=== PATIENT | male | born 1960 | race Caucasian/White ===

== ENCOUNTER 2022-11-24 15:36 | Emergency (ER) | payer MEDICARE, SELFPAY ==
--- NOTE | 2022-11-24 15:48 | ED_ITS ---
HPI - Recheck/Abnormal Lab/Rx General Chief Complaint: Upper Respiratory Symptoms Stated Complaint: Abnormal labs Time Seen by Provider: 11/24/22 16:01 Source: patient Mode of arrival: ambulatory Limitations: no limitations History of Present Illness HPI narrative: Patient is a 62-year-old male presents emergency department being sent in by his primary care provider. States he has been ill for 6 weeks for left sinus tenderness, nasal congestion, completed a course of doxycycline 1 week ago. Reports many years ago he had red spots to his hands and mouth 6 years ago, which has now been documented as an allergy to Augmentin, and his doctor would not prescribe it. Symptoms had worsened yesterday, PCP ordered a sinus XR he states that the report indicated left sinusitis. He contacted the primary care office today to discuss this, and he was advised that he needed to come to the emergency department to receive IV antibiotics. He reports a history of liver transplant 2008, due to Hepatitis C, on tacrolimus and cellcept. Has trialed Flonase, Mucinex, without any significant improvement. Denies fevers, chills, sore throat, chest pain, shortness of breath, difficulty breathing, nausea, vomiting, abdominal pain. Related Data Previous Rx's Medication Instructions Recorded amoxicillin 875 mg-potassium 1 tab PO Q12H #13 tabs 11/24/22 clavulanate 125 mg tablet Allergies Allergy/AdvReac Type Severity Reaction Status Date / Time No Known Allergies Allergy Verified 11/24/22 16:00 Review of Systems Review of Systems: Constitutional: no fever. no chills. No weakness. no fatigue. ENT/ Mouth: No Ear Pain, positive Nasal Congestion, no sore throat, No Rhinorrhea, No Swallowing Difficulty Skin: No rash or itching. Cardiovascular: No chest pain. No palpitations. Respiratory: No shortness of breath. no cough. No sputum production. Gastrointestinal: No nausea. No vomiting. No diarrhea. No abdominal pain. Genitourinary: No burning micturition. No urinary frequency. Neurologic: No headache. No dizziness. No syncope. No numbness or tingling in the extremities. Musculoskeletal: No muscle pain. No back pain. No joint pain or stiffness. Yes all other systems are reviewed and are negative PMFSH Past Medical History Attestation statement: The following information was validated with the patient. Source: old records reviewed Social History Social History Advance Directives: No Advance Directives Information Provided: Yes Physical Exam Vital Signs: Vital Signs: Last Vital Signs Temp 97.6 F 11/24/22 15:49 Pulse 75 11/24/22 15:49 Resp 20 11/24/22 15:49 BP 141/88 H 11/24/22 15:49 Pulse Ox 97 11/24/22 15:49 O2 Del Method 11/24/22 15:49 BMI result Body Mass Index 25.0 Appearance: Alert.?Oriented to person, place and time. No acute distress.?Normal affect. Eyes: Pupils equal, round and reactive to light.? ENT: TM normal bilaterally. Pharynx normal. Left maxillary sinus tenderness upon palpation?? Neck: Normal inspection.? Neck supple.??No cervical adenopathy CVS: Heart sounds normal. Normal heart rate and rhythm.? Pulses normal.?? Respiratory: No respiratory distress.? Lung sounds clear to auscultation bilaterally?? Abdomen: Soft and non-tender. Normoactive bowel sounds. Skin: Skin warm and dry.? Normal skin color.? ? Extremities: No lower extremity edema.? Neuro: Moves all extremities spontaneously. Sensation intact bilaterally. No motor deficits. Ambulates with normal steady gait. Medications Administered Discontinued Medications Generic Name Dose Route Start Last Admin Trade Name Freq PRN Reason Stop Dose Admin Amoxicillin/Clavulanate Potassium 875 mg 11/24/22 16:00 11/24/22 16:03 Amoxicillin/Potassium Clav 875 Mg Tablet PO 11/24/22 16:01 875 mg ONCE ONE Administration Medical Decision Making Medical Decision Making MDM Narrative: Patient is a 62-year-old with history of liver transplant 2008, due to Hepatitis C, on tacrolimus and cellcept sent to emergency department 5 primary care provider. Has had ongoing sinusitis symptoms for 6 weeks, despite the use of OTC medications and sinus lavage is, nasal spray, sinus XR yesterday revealing left sinusitis, was advised by PCP that he would require IV antibiotics, given history of liver transplant. Overall he is well-appearing, has had prior outpatient testing for viral studies which have been negative. History and physical examination not consistent with pneumonia. He is nontoxic, afebrile, no tachycardia, no tachypnea or hypoxia. Nares are patent bilaterally. He sp eaking clear full sentences. Discussed with patient at this time no indication for IV antibiotics. Given recent completion of doxycycline without significant improvement, recommend treatment with Augmentin given his immunocompromised status. He reports that his PCP was concerned for a possible allergic reaction to Augmentin in the past, which patient does not agree with. Patient received 1st dose of Augmentin while in the emergency department today, tolerated this well, no signs of anaphylaxis, angioedema, urticaria, or allergic reaction. We discussed that should his symptoms persist after the use of Augmentin he may need to consider discussing referral to ENT specialist for chronic sinusitis with his primary care provider. Patient verbalized understanding of this. We discussed worrisome signs and symptoms that would warrant re-evaluation in the emergency department. All questions answered. He was stable for discharge. Prescription Management I considered prescription management with: Antibiotic Chronic Conditions Patient?s care impacted by: Other (Liver transplant) Discharge Plan Discharge Clinical Impression: Sinusitis Qualifiers: Sinusitis location: maxillary Chronicity: chronic Qualified Code(s): J32.0 - Chronic maxillary sinusitis Patient Disposition: Home, Self-Care Instructions: Sinusitis (ED) Additional Instructions: You were able to tolerate Augmentin while in the emergency department without having any reaction to it. Therefore prescription was sent to your pharmacy. If your symptoms still persist after completion of this antibiotic, you may want to consider speaking with your primary care provider and discussing referral to ENT specialist for chronic sinusitis. Be sure to rest, stay well hydrated drinking plenty of fluids, eat small frequent meals. Tylenol/ibuprofen can be used as needed for fever/pain. Saline nasal spray, humidifier may be helpful for nasal congestion. You may return to the emergency department with any new or worsening symptoms or concerns. Follow-up with your primary care provider as needed. Prescriptions: New amoxicillin-pot clavulanate 875-125 mg tablet 1 tab PO Q12H Qty: 13 0RF Referrals: Physician,Unknown J [Primary Care Provider] -
[2022-11-24 15:49] VITALS: BP 141/88; PULSE 75; RESP 20; TEMP 36.4; O2SAT 97; BMI 25.0
[2022-11-24] MEDS: Amoxicillin/Potassium Clav 875 MG TABLET PO (16:03)
--- OUTSIDE RECORDS SUMMARY | 2022-11-24 16:16 | XMS_ITS | Continuity of Care Document ---
:1960 Author Organization [facility] Address [address] [place] [id number]- Care Team Providers Name Role Phone Robbie Ferguson MD Primary Care Physician Encounter [facility] [place] Date(s): 11/15/22 - 11/15/[address] [address]- Discharge Disposition: A-D/C Walkout Attending Physician: Not on Staff, Attending MD Admitting Physician: Not on Staff, Admitting MD Referring Physician: Not on Staff, Referring MD Allergies, Adverse Reactions, Alerts Substance Reaction Severity Status Augmentin Active Latex rash Active Medications atenolol 25 mg oral tablet 25 mg, 1, tablet, By Mouth, Daily, # 30 tablet, Refills 0, Maintenance, 11/01/17 11:38:12 Start Date: 11/01/17 Status: OrderedBactrim SS Tablet 1, tablet, By Mouth, Daily, 12/01/09 12:55:56 Start Date: 12/01/09 Stop Date: 12/08/09 Status: OrderedCalcium 600 +D See Instructions, 1 tablet By Mouth every day, 0 Refills, Maintenance, 05/13/15 11:53:58 Start Date: 05/13/15 Status: OrderedCellCept 500 mg oral tablet 2 tablet, By Mouth, 2 times a day, 1 hour before or 2 hours after meals, # 120 tablet, 0 Refills, Tablet Start Date: 12/01/09 Stop Date: 12/31/09 Status: OrderedColace Capsule 100 mg, By Mouth, 2 times a day, 12/01/09 12:58:44 Start Date: 12/01/09 Stop Date: 12/31/09 Status: OrderedFlomax 0.4 mg oral capsule 1 capsule = 0.4 mg, By Mouth, Daily, 0 Refills, Maintenance, 10/12/15 12:48:02 Start Date: 10/12/15 Status: OrderedFlomax 0.4 mg oral capsule 1 capsule = 0.4 mg, By Mouth, Daily, # 30 capsule, 0 Refills, Maintenance, 05/13/15 11:49:51, Capsule Start Date: 05/13/15 Status: OrderedFlorinef Tablet = 0.1 mg, By Mouth, Every Sunday, Sunday and Sunday, 0 Refills, Tablet Start Date: 12/01/09 Stop Date: 12/31/09 Status: OrderedFlovent HFA Inhalation, 2 times a day, 0 Refills, Maintenance, 06/15/16 11:49:54 Start Date: 06/15/16 Status: OrderedKayexalate in Sorbitol = 15 Gm, 4 times a day, 0 Refills Start Date: 12/01/09 Stop Date: 12/31/09 Status: OrderedLevaquin 500 mg oral tablet 1 tablet, By Mouth, Every 24 hours, # 6 tablet, 0 Refills Start Date: 05/31/09 Stop Date: 06/06/09 Status: OrderedLoratadine 10 mg, By Mouth, Daily, Maintenance, 05/13/15 12:28:56 Start Date: 05/13/15 Status: OrderedPercocet-5/325 325 mg-5 mg oral tablet 2 tablet, By Mouth, Every 6 hours, PRN Pain, 0 Refills, Tablet Start Date: 12/01/09 Stop Date: 12/08/09 Status: Orderedprednisone 5 mg oral tablet 2.5 tabletts , By Mouth, Daily, # 10 tablet, 0 Refills, Tablet Start Date: 12/01/09 Stop Date: 12/11/09 Status: OrderedPrograf 0.5 mg oral capsule See Instructions, 1 capsule By Mouth Every day, 0 Refills, Maintenance, 05/13/15 11:48:44, Capsule Start Date: 05/13/15 Status: OrderedPrograf 1 mg oral capsule 1 capsule, By Mouth, Every 12 hours, # 180 capsule, 0 Refills, Capsule Start Date: 12/01/09 Stop Date: 12/31/09 Status: OrderedPrograf 1 mg oral capsule See Instructions, 1 capsule By Mouth every day, 0 Refills, Maintenance, 05/13/15 11:46:38, Capsule Start Date: 05/13/15 Status: OrderedProtonix 20 mg oral enteric coated tablet 1 tablet = 20 mg, By Mouth, 2 times a day, # 180 tablet, 0 Refills, EC Tablet Start Date: 12/01/09 Stop Date: 12/31/09 Status: Orderedsertraline 50 mg oral tablet 1 tablet, By Mouth, Daily at bedtime, # 30 tablet, 0 Refills, Tablet Start Date: 12/01/09 Stop Date: 12/30/09 Status: OrderedTrazodone = 25 mg, By Mouth, Daily at bedtime, 0 Refills, Maintenance, 10/28/15 10:54:04 Start Date: 10/28/15 Status: OrderedValcyte 450 mg oral tablet 1 tablet = 450 mg, By Mouth, Daily, # 40 tablet, 0 Refills, Tablet Start Date: 12/01/09 Stop Date: 12/11/09 Status: OrderedVicodin 500 mg-5 mg oral tablet 1 tablet, By Mouth, Every 4 hours, PRN Pain, # 12 tablet, 0 Refills, Maintenance, Tablet Start Date: 09/04/12 Status: Ordered Results Radiology Reports Exam Date Time Procedure Performing Provider Status 11/15/22 10:38 AM Chest 2 Views Frontal and Lat Tigist Baez; Auth (Verified) Notes:(Chest 2 Views Frontal and Lat) Reason For Exam: Chest Pain;Other:RESULT: Chest 2 Views Frontal and Lat Chest 2 Views Frontal and Lat HX OF PRESENT ILLNESS: nausea with lt arm pain since sunday; Reason: Chest Pain; COMPARISON: Chest radiograph from 04/23/2013. FINDINGS: LINES AND TUBES: None. LUNGS AND PLEURA: Left retrocardiac haziness, which may represent atelectasis/infiltrate. The right lung appears clear. No pleural effusion. No pneumothorax. HEART, MEDIASTINUM AND GRIS: Heart is normal in size. Normal mediastinal and hilar contour. BONES AND SOFT TISSUES: No acute abnormality. IMPRESSION: Left retrocardiac haziness, which may represent atelectasis/infiltrate. I have personally reviewed the images and I agree with this report. WSN: [id number] Ordering Physician: Beth Landeros Dictated By: Deb Law MD Dictated Date/Time: 11/15/22 10:58 a Reviewed By: Jluis Quintero MD Signed By: Jluis Quintero MD Signed Date/Time: 11/15/22 11:03 am Transcribed By: SYED Transcribed Date/Time: 11/15/22 10:52 am Vital Signs Most recent to oldest 1 2 3 [Reference Range]: Oxygen Saturation [94-100 98 % 99 % 99 % %] (11/15/22 1:34 PM) (11/15/22 11:49 AM) (11/15/22 9:20 AM) Pulse Rate [55-90 bpm] 64 bpm 66 bpm 66 bpm (11/15/22 1:34 PM) (11/15/22 11:49 AM) (11/15/22 9:20 AM) Blood Pressure 120/75 mm Hg 130/69 mm Hg 130/69 mm Hg [90-138/55-84 mm Hg] (11/15/22 1:34 PM) (11/15/22 11:49 AM) ( 9:20 AM) Respiratory Rate [16-30 16 br/min br/min] (11/15/22 9:20 AM) Temperature [96.8-100.4 98 DegF 97.6 DegF 97.6 Deg F DegF] (11/15/22 1:34 PM) (11/15/22 11:49 AM) (11/15/22 9:20 AM) Mode of Delivery (Oxygen) Room air Room air Room a ir (11/15/22 1:34 PM) (11/15/22 11:49 AM) (11/15/22 9:12 AM) Blood pressure sites Arm, left Arm, right (11/15/22 1:34 PM) (11/15/22 11:49 AM) Temperature Route Oral Oral (11/15/22 1:34 PM) (11/15/22 11:49 AM) EKG study Event Display: ECG 12-Lead Authored Date: Please click on pdf link to open report Event Display: ECG 12-Lead Authored Date: Ventricular Rate: 72 BPM Atrial Rate: 72 BPM P-R Interval: 160 ms QRS Duration: 88 ms Q-T Interval: 388 ms QTC Calculation(Bazett): 424 ms P [place]: 80 degrees R [place]: 70 degrees T [place]: 68 degrees Normal sinus rhythm Low voltage QRS Borderline ECG When compared with ECG of 04-DEC-2011 17:45, Questionable change in QRS axis Confirmed by SOWMYA LONG MD ([id number]) on 11/15/2022 9:31:12 AM [place]: SOWMYA LONG MD Note [facility]ers[facility] , CIS S: TRANSCRIBE Jluis Quintero MD: VERIFY Deb Law MD A: SIGN Event Display: Result: Authored Date: Chest 2 Views Frontal and Lat HX OF PRESENT ILLNESS: nausea with lt arm pain since sunday; Reason: Chest Pain; COMPARISON: Chest radiograph from 04/23/2013. FINDINGS: LINES AND TUBES: None. LUNGS AND PLEURA: Left retrocardiac haziness, which may represent atelectasis/infiltrate. The right lung appears clear. No pleural effusion. No pneumothorax. HEART, MEDIASTINUM AND GRIS: Heart is normal in size. Normal mediastinal and hilar contour. BONES AND SOFT TISSUES: No acute abnormality. IMPRESSION: Left retrocardiac haziness, which may represent atelectasis/infiltrate. I have personally reviewed the images and I agree with this report. WSN: [id number] Ordering Physician: Beth Landeros Dictated By: Deb Law MD Dictated Date/Time: 11/15/22 10:58 a Reviewed By: Jluis Quintero MD Signed By: Jluis Quintero MD Signed Date/Time: 11/15/22 11:03 am Transcribed By: SYED Transcribed Date/Time: 11/15/22 10:52 am Patient Care team information Care Team PersonnelName: Robbie Ferguson MD Position: [facility] Outreach Member Role: PCP Address: Address: [address] [place] [id number]- Name: Sonya Perez RN Position: S RN Member Role: Primary Care Nurse Care Team Related PersonsName: SUNNY MUSA Address: home [address] [place] [id number]
--- OUTSIDE RECORDS SUMMARY | 2022-11-24 16:16 | XMS_ITS | Continuity of Care Document ---
:1960 Author Organization [facility] Care Team Providers Name Role Phone [facility] Unavailable Unavailable Problems Combined list of problems from Department of Defense and Veterans Affairs facilities. It does not include entries that were removed or entered in error. Problem Status Onset Problem Date of Comments Source Date Type Resolution Candidiasis, Oral Inactive 07/08/ Condition 04/20/2017 [facility] 2008 Esophageal varices Inactive 11/19/ Condition 04/20/2017 [facility] without mention of 2008 bleeding History of Active 11/19/ Condition Apr 20, 2017 [facility] Recurrent Kidney 2006 Entered By: IAIN Jones Comment: lithrotripsy x 3 right kidney Dec 09, 2009 Entered By: KIP CYR Comment: ultrasound 11/28 0.5cm right mid ureteral stone w/ mod hydro Dec 09, 2009 Entered By: KIP CYR Comment: ureteronephrosis Hepatic Inactive 11/19/ Condition 04/20/2017 [facility] Encephalopathy 2003 Chronic hepatitis Inactive 06/18/ Condition 04/20/2017 [facility] 1988 Hepatitis C Inactive 06/18/ Condition 04/20/2017 Sep 23, 2009 [facility] 1988 Entered By: KIP CYR Comment: from needle stick as dialysis nurse Asthma [facility] Active Condition [facility] Benign paroxysmal Active Condition [facility] [place] positional vertigo Benign prostatic Active Condition [facility] hypertrophy with outflow obstruction Celiac disease Active Condition Oct 22, 2017 [place] Entered By: IAIN MAURICIO Comment: Dx 2010 Colonoscopy Active Condition Apr 20, 2017 [facility] Entered By: IAIN SOTELO Comment: 2013 - [facility] Dr Villanueva - f/u 2016 Erectile Active Condition Jun 21, 2017 [facility] dysfunction (SNOMED Entered By : CLAY CT [id number]) IAIN MAURICIO Comment: Dr Stout [facility] - started injection erection therapy 06/19/17 - Trimix Nov 14, 2021 Entered By: BAM SPIVEY Comment: Request injection script for Dr. 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 HCS Liver transplant Active Condition Nov 09 09 [place] recipient (SNOMED Entered By: CT [id number]) KIP CYR Comment: 10/16/09 autologous nonrelated donor Jul 01, 2010 Entered By: JOE ZAMUDIO Comment: new CMV Liver secondary HCV in JUN 28 Jul 01, 2010 Entered By: JOE ZAMUDIO Comment: seeing [facility] Clinic [facility] Feb 24, 2011 Entered By: JOE ZAMUDIO Comment: last seen OCT 28; Recurrent HCV; Feb 24, 2011 Entered By: JOE ZAMUDIO Comment: stay on Interferon & Ribavirin Feb 24, 2011 Entered By: JOE ZAMUDIO Comment: last seen Liver Clinic DEC 30; no changes Aug 11, 2011 Entered By: JOE ZAMUDIO Comment: last seen [facility] JUL 30 Aug 11, 2011 Entered By: JOE ZAMUDIO Comment: see note dated JUL 30 Jul 11, 2013 Entered By: JOE ZAMUDIO Comment: Original Accidental Needle-Stick 1988; Dx w/ HCV 1998Mar 09, 2014 Entered By: JOE ZAMUDIO Comment: EGD, MAR 02: Neg CA; no Varices; no ABNL Sep 17, 2014 Entered By: JOE ZAMUDIO Comment: Last Seen by [facility] SEP 01: Sep 17, 2014 Entered By: JOE ZAMUDIO Comment: Deemed Stable as of SEP 01; has Stage 3 KLiver Failure Aug 16, 2016 Entered By: TAYLOR WATKINS MD Comment: Normal Hepatic Ultrasound:see Fax/Mail 08/16/2016 Mixed Active Condition [facility] hyper[facility] [place] [facility] HCS MRI L-S Spine Active Condition Oct 22, 2017 [place] 11/2009 Entered By: IAIN MAURICIO Comment: mild broad based post. disk bulges L3-L5 w/o canal stenosis Nov 25, 2009 Entered By: KIP CYR Comment: lt protrusion L3-4w/mild narrowing lt neural foramen Primary Care Active Condition Oct 22, 2017 [facility] Physician Entered By: IAIN SOTELO Comment: Dr CARRINGTON Ferguson [place] Nov 14, 2021 Entered By: BAM SPIVEY Comment: Request scripts from outside PCP Type 2 diabetes Active Condition Nov 18 9 [facility] Entered By: IAIN SOTELO Comment: Dxed HCS 2019 bacterial Inactive Condition [facility]20/2017 [facility] peritonitis 7--2008 Cirrhosis Inactive Condition 04/20/2017 [facility] LD Depressive disorder Inactive Condition 04/20/2017 [place] Hyperkalemia * Inactive Condition 04/20/2017 [facility] (ICD-9-CM 276.7) Injury to peroneal Inactive Condition 04/20/2017 Nov 25, 2009 [place] nerve Entered By: KIP CYR Comment: causing left foot drop Lateral Inactive Condition 04/20/2017 [facility] epicondylitis [facility] (SNOMED CT [place] TS [id number]) HCS portal vein Inactive Condition 04/20/2017 [facility] IELD hypertension vasectomy 1996 Inactive Condition 10/22/2017 [facility] [place] Diagnosis: Active Diagnosis [place] ICD-10-CM E11.9 [facility]OC Type 2 diabetes mellitus without complicationswith Provider Comments: Type 2 diabetes mellitus ([facility] [id number]) Diagnosis: Active Diagnosis [facility] ICD-10-CM Z46.0 WSTR N Encounter for [place] fit/adjst of HCS spectacles and contact lenseswith Provider Comments: Encounter for Fitting and Adjustment of Spectacles and Contact Lenses Diagnosis: Active Diagnosis [facility] ICD-10-CM E11.9 WSTR N Type 2 diabetes [place] mellitus without HCS complicationswith Provider Comments: DM Type 2 w/o Complications Medications Combined list of outpatient medications from Department of Defense and Veterans Affairs facilities. Medications provided include 1) outpatient medications from the last 15 months, and 2) patient-reported medications. Medication Details Route Status Patient Prescription Prescription Last Ordering Order Source Instructions Expires Number Dispense Provider Date Date ALBUTEROL INHALE 2 INHALA ACTIVE 11/23/2022 [id number] ROXIE CHANDLER 11/22/ [facility] 90MCG/ACTUA PUFFS BY TION 2 2021 CNT RL T (CFC-F) MOUTH ORAL WSTRN INHL,ORAL,8 EVERY 6 [place] .5GM DOSE HOURS SETS COUNTER NEEDED HCS ALBUTEROL INHALE 1 INHALA ACTIVE 06/09/2022 [id number] ROXIE MAURICIO SO4 0.083% AMPULE TION 2 SA 2021 CNTRL INHL,3ML IN MISCEL WSTRN NEBULIZE LANEOU [place] R EVERY S SETS 6 HOURS HCS NEEDED FOR BREATHIN G ALPRAZOLAM TAKE ONE ORAL(C ACTIVE AJJAGOTTU 09/02/ [place] 0.25MG TAB TABLET AP/TAB ,RUI2007 ON BY MOUTH /LIQ) THREE TIMES A DAY ALPROSTADIL INJECT 1 HOLD 02/09/2023 [id number] SONN,D SILVIA 02/10/ [facility] 20MCG/CARTR VIAL 2 LD J 2021 CNTRL IDGE INTO THE WSTRN INJ,SYSTEM PENIS [place] ONCE A SETS WEEK FOR HCS ERECTILE DYSFUNCT ION ALPROSTADIL INJECT 1 DISCONT 01/04/2023 [id number] SONN ANGELA 01/03/ [facility] 20MCG/CARTR VIAL INUED 2 LD J 2021 CNTRL IDGE INTO THE WSTRN INJ,SYSTEM PENIS [place] DIRECTED SETS WEEKLY HCS --FOR ERECTILE DYSFUNCT ION ALPROSTADIL INJECT 1 11/09/2021 [id number] ROXIE CHANDLER 11/08/ [facility] 20MCG/CARTR VIAL 1 SA 2019 CNTRL IDGE INTO THE WSTRN INJ,SYSTEM PENIS [place] DIRECTED SETS WEEKLY HCS --FOR ERECTILE DYSFUNCT ION ALPROSTADIL INJECT 1 ACTIVE 05/02/2023 [id number] SONN, ANGELA 05/01/ [facility] 40MCG/CARTR VIAL 2 LD J 2021 CNTRL IDGE INTO THE WSTRN INJ,SYSTEM PENIS [place] EVERY SETS WEEK HCS DIRECTED BY PROVIDER NEEDED FOR ERECTILE DYSFUNCT ION CALCIUM TAKE ONE ORAL ACTIVE AMY WATKINS 08/16/ [facility] 250MG/VITAM TABLET EL Rafat VALENCIA 2015 CNTRL IN D 125UNT BY MOUTH WSTRN TAB TWICE [place] DAILY SETS HCS FLUTICASONE INHALE 1 INHALA ACTIVE 10/27/2023 [id number] HO MENA,LI [facility] 250MCG/SALM PUFF BY TION 2 SA ADÁN 2021 CNTR L ETEROL MOUTH ORAL WSTRN 50MCG TWICE [place] INHL,ORAL,D DAILY SETS ISKUS,60 FOR HCS CONTROLL ER MEDICATI ON FOR ASTHMA - RINSE MOUTH AFTER USE (BY DR UZIEL PETTY) FUROSEMIDE TAKE ONE ORAL(C ACTIVE AJJAGOTTU 1015/ [place] 20MG TAB TABLET AP/TAB ,RUI2007 ON BY MOUTH /LIQ) EVERY MORNING LACTULOSE TAKE 2 ORAL(C ACTIVE AJJAGOTTU 09/02/ NE [place] 10GM/15ML TABLESPO AP/TAB ,RUI2007 ON SOLN,ORAL ONFULS /LIQ) BY MOUTH THREE TIMES A DAY LORATADINE TAKE ONE ORAL ACTIVE AMY WATKINS VA 10MG TAB TABLET EL Rafat VALENCIA 2015 CNTRL BY MOUTH WSTRN ONCE [place] DAILY SETS NEEDED HCS MYCOPHENOLA TAKE 2 ORAL ACTIVE AMY WATKINS 08/16/ V A TE MOFETIL CAPSULES LAURIE Douglass MD 2015 CNTR L (CELLCEPT) BY MOUTH WSTRN 250MG CAP TWICE [place] DAILY SETS HCS NADOLOL TAKE ONE ORAL(C ACTIVE AJJAGOTTU 15/ NE [place] 20MG TAB TABLET AP/TAB ,RUI 2007 ON BY MOUTH /LIQ) ONCE DAILY SERTRALINE TAKE ONE ORAL(C ACTIVE AJJAGOTTU 15/ [place] HCL 100MG TABLET AP/TAB ,RUI 2007 ON TAB BY MOUTH /LIQ) ONCE DAILY SPIRONOLACT TAKE ONE ORAL(C ACTIVE AJJAGOTTU 15 / [place] ONE 25MG TABLET AP/TAB ,RUI 2008 ON TAB BY MOUTH /LIQ) ONCE DAILY TACROLIMUS TAKE 1 ORAL ACTIVE WATKINSAMY 08/16/ [facility] (PROGRAF) CAPSULE LAURIE Douglass MD 2015 CNTRL 1MG CAP BY MOUTH WSTRN TWICE [place] DAILY SETS HCS TAMSULOSIN TAKE 1 ORAL ACTIVE HANGROXIE HCL 0.4MG CAPSULE SA [place] 2016 CNTRL CAP BY MOUTH [facility] [place] [facility] Allergies, Adverse Reactions, Alerts Combined list of allergies from Department of Defense and Veterans Affairs facilities. It does not include entries that were removed or entered in error. Substance Category Reaction Severity Reaction Status Date Comments S ource type Reported ASPIRIN Propensity Low blood Propensity active [facility] RELATED to adverse pressure to adverse 3 W STRN MEDICATIONS reactions reactions [place] to drug to drug ETS HCS (finding) (finding) LATEX Propensity Eruption Propensity active PROVIDEN to adverse to adverse 0 CE [facility] reactions reactions to drug to drug (finding) (finding) PENICILLIN Propensity Anxiety, Propensity active [facility] to adverse Urticaria to adverse 6 WSTRN reactions reactions [place] to drug to drug ETS HCS (finding) (finding) Immunizations Combined list of available immunizations from the Department of Defense and Veterans Affairs facilities. Immunization Series Date Administered Site Reaction Lot CVX Drug St atus Comments Source Given By Number Code Plater Barrel COVID-19 2 complet MOD; SP RINGF (MODERNA), 2020 ed [id number]; [place] MRNA, LNP-S, 02 PF, 100 1 MCG/0.5 ML DOSE COVID-19 1 complet MOD; SP RINGF (MODERNA), 2020 ed [id number]; [place] MRNA, LNP-S, 02 PF, 100 1 MCG/0.5 ML DOSE INFLUENZA, complet [facility] UNSPECIFIED 2019 ed CN TRL FORMULATION WS TRN [place] [facility] PNEUMOCOCCAL complet [place] POLYSACCHARID 2017 ed IELD E PPV23 INFLUENZA, complet [facility] SEASONAL, 2017 ed CNTR L INJECTABLE WST RN [place] [facility] [facility] FLU,3 YRS complet [facility] V A (HISTORICAL) 2016 ed C [facility]TRL [facility] [place] [facility] HEP A-HEP B complet appro x yr [facility] 2016 ed did CNTRL outside [facility] bva [place] [facility] [facility] FLU,3 YRS complet outside [facility] (HISTORICAL) 2014 ed va C NTRL [facility] [place] [facility] [facility] FLU,3 YRS complet Site: S [facility] (HISTORICAL) 2013 ed Left I ELD Deltoid PNEUMOCOCCAL complet [place] CONJUGATE PCV 2013 ed IELD 13 FLU,3 YRS complet V A (HISTORICAL) 2011 ed C [facility]TRL [facility] [place] [facility] [facility] DTAP, complet [facility] UNSPECIFIED 2010 ed CN TRL FORMULATION WS TRN [place] [facility] FLU,3 YRS complet V A (HISTORICAL) 2010 ed C [facility]L [facility] [place] [facility] [facility] HEPATITIS A complet [facility] [place] [facility] (HISTORICAL) 2010 ed jason [facility] [place] [facility] FLU,3 YRS complet V A (HISTORICAL) 2009 ed C [facility]TRL [facility] [place] [facility] [facility] NOVEL complet [employer] SPR[facility] NGF INFLUENZA-H1N 2008 ed Pasteu r IELD 1-09, ALL FORMULATIONS FLU,3 YRS complet Site: S [facility] (HISTORICAL) 2008 ed Left I ELD Deltoid FLU,3 YRS complet Site: C [facility] (HISTORICAL) 2007 ed Right I CUT Deltoid HCS PNEUMOCOCCAL complet [facility] POLYSACCHARID 2006 ed CNTRL E PPV23 [facility] [place] [facility] PNEUMOCOCCAL, complet [facility] UNSPECIFIED 2006 ed CN TRL FORMULATION WS TRN [place] [facility] PNEUMOCOCCAL, complet [facility] UNSPECIFIED 2006 ed IC UT FORMULATION HC S Encounters Combined list of: 1) Encounters from Department of Veterans Affairs facilities going back up to the last 18 months. 2) Encounters from the Department of Defense facilities going back up to 280 months. Location Location Encounter Encounter Reason Attending ADM DC Stat us Disposition Source Details Type Number For Provider Date Date Visit Outpatient [id number] 06/14 [facility] En[facility] [id number] /2021 [facility] [place] [facility] [id number]/24 [facility] Encounter [id number] /2021 [facility] [place] [facility] [id number] 07/08 [facility] Encounter [id number] [facility] [place] [facility] [id number] 08/01 [facility] Encounter [id number] /2021 [facility] [place] [facility] [id number] 08/01 [facility] Encounter [id number] [facility] [place] [facility] [id number] 11/14 [facility] Encounter [id number] [facility] [place] [facility] [id number] 11/15 [facility] Encounter [id number] [facility] [place] [facility] [id number] 11/22 [facility] Encounter [id number] [facility] [place] [facility] [id number] 11/22 VA Encounter [id number] /2022 [facility] [place] [facility] Out[facility] [id number] 12/02 [facility] Encounter [id number] /2022 [facility] [place] [facility] Out[facility] [id number] 12/09 VA Encounter [id number] [facility] [place] [facility] [facility] [id number] 12/15 VA Encounter [id number] /2022 [facility] [place] [facility] [id number] 12/20 VA Encounter [id number] [facility] [place] [facility] [facility] Out[facility] [id number] 12/21 VA Encounter [id number] [facility] [place] [facility] [facility] [id number] 01/03 VA Encounter [id number] [facility] [place] [facility] [id number] 01/03 VA Encounter [id number] [facility] [place] [facility] [facility] [id number] 01/30 VA Encounter [id number] [facility] [place] [facility] Out[facility] [id number] 05/01 VA Encounter [id number] /2022 [facility] [place] [facility] [facility] Out[facility] [id number] 05/01 VA Encounter [id number] /2022 [facility] [place] [facility] Out[facility] [id number] 05/09 VA Encounter [id number] /2022 [facility] [place] [facility] Out[facility] [id number] 05/10 [facility] Encounter [id number] [facility] [place] [facility] [facility] Out[facility] [id number] 06/15 [facility] Encounter [id number] [facility] [place] [facility] [facility] Out[facility] [id number] 06/27 VA Encounter [id number] /2022 [facility] [place] [facility] [facility] Out[facility] [id number] 07/05 [facility] Encounter [id number] [facility] [place] [facility] [facility] EYE [id number] Diagnos MADHURIDEVYN 07/05 VA EXAM&TX [id number] is: H B CNTRL ESTAB PT ICD-10- WSTRN 1/>VST CM [place] E11.9 SETS Type 2 HCS diabete s mellitu s without complic ations< br/>wit h Provide r Comment s: DM Type 2 w/o Complic ations Outpatient [id number] 07/05 VA Encounter [id number] /2022 [facility] [place] [facility] [facility] Out[facility] [id number] 07/05 VA Encounter [id number] /2022 [facility] [place] [facility] [facility] FIT [id number] Diagnos BERNABE,LAURI 07/06 [facility] SPECTACLES [id number] is: NTHIA CNTR L MULTIFOCAL ICD-10- SUNNY WST RN CM [place] Z46.0 SETS Encount HCS er for fit/adj st of spectac les and contact lenses< br/>wit h Provide r Comment s: Encount er for Fitting and Adjustm ent of Spectac les and Contact Lenses Outpatient [id number] 07/10 [facility] Encounter [id number] /2022 [place] [id number] Diagnos JOHNATHAN,GEORGIA 07/11 [place] DIG [id number] is: ISTIE J /2021 RG CBOC ASSMT&MGMT 62 ICD-10- 11-20 CM E11.9 Type 2 diabete s mellitu s without complic ations< br/>wit h Provide r Comment s: Type 2 diabete s mellitu s (SCT [id number]) Outpatient [id number] 07/28 [facility] Encounter [id number] [facility] [place] [facility] Outpatient [id number] 07/31 VA Encounter [id number] [facility] [place] [facility] Outpatient [id number] 10/24 VA Encounter [id number] [facility] [place] [facility] Outpatient [id number] 10/26 VA Encounter [id number] CNTR [place] [facility] Social History Combined list of available smoking, tobacco, and other social history from [facility]. Social History Response Date Comment Source Type Tobacco smoking VA-TOBACCO FORMER 11/29/2020 [place] status NHIS USER History of tobacco VA-TOBACCO QUIT 15 11/29/2020 [facility] [place] use YRS OR MORE History of tobacco VA-TOBACCO QUIT 15 11/03/2019 [facility] [place] use YRS OR MORE History of tobacco CURRENT SMOKER 04/11/2018 Quit 20+ years ago [place] use History of tobacco QUIT TOBACCO USE > 04/20/2017 ciagrettes 2pack s a [facility] use 7 YEARS AGO day/quit 25 years ago History of tobacco QUIT TOBACCO USE > 12/30/2015 [place] use 7 YEARS AGO History of tobacco QUIT TOBACCO USE > 07/01/2010 [facility] [place] use 7 YEARS AGO History of tobacco QUIT TOBACCO USE 07/06/2009 Patient quit tabac co [facility] use 1-7 YEARS AGO use seven years ago. History of tobacco QUIT TOBACCO USE > 05/28/2008 [place] [facility] use 7 YEARS AGO Advance Directives List of completed, amended, or rescinded Advance Directives on record at Department of [facility] Affairs facilities. An actual copy of the Directive is not included. Date Advance Directive Provider Source 07/06/2009 ADVANCE DIRECTIVE KEESHA JONES
--- OUTSIDE RECORDS SUMMARY | 2022-11-24 16:17 | XMS_ITS ---
:1960 Author Organization [facility] Address [address] [place] [address] Support Name Relationship Address Phone DIMPLESUNNY Unavailable [address] [place] [address] SUNNY MUSA Unavailable [address] [place] [address] Insurance Providers: All historical and current Section Date Range: From patient's date of to the date document was created.This section includes the names of all active insurance providers for the patient. Insurance Type of Plan Start of End of Group Member Insurance Policy P atient's Provider Coverage Name Policy Policy Number ID Provider's Cuello's Relationship Coverage Coverage Telephone Name to Policy Number Cuello MEDICARE MEDICARE PART Jul 20, PART A [id number] Gail QUINTANILLA PATIENT (WNR) (M) A 2009A 4 [place] MEDICARE MEDICARE PART Jul 20, PART B [id number] Gail QUINTANILLA PATIENT (WNR) (M) B 2009A [place] MEDICARE MEDICARE PART Jul 20, PART A [id number] [phone] Gail QUINTANILLA PATIENT (WNR) (M) A 2009A [place] MEDICARE MEDICARE PART Jul 20, PART B [id number] [phone] Gail QUINTANILLA PATIENT (WNR) (M) B 2009A [place] Selected Encounter This section includes the information on record at [place] for the Encounter. Date/Time Encounter Type Encounter Description Reason Provider Source Dec 09, 2021 12:18 Outpatient Encounter COMMUNITY CARE PM CONSULT IHE Encounter Template Text not used by [facility] Plan of Treatment: Future Appointments (+ 6 months) and Future Tests (+/- 45 days) The Plan of Treatment section includes future care activities for the patient from all [place] treatmentfacilities. This section includes future appointments and future orders which are active, pending orscheduled.Future Appointments This section includes appointments that were scheduled to occur 6 months from the date of the Encounter, up to a maximum of 20 appointments. The data comes from all [place] treatment facilities. Appointment Date/Time Appointment Type Appointment Facili ty Name Jan 03, 2022 01:40 PM AMBULATORY [place]ICINE [place] [facility] Advance Directives: All historical and current Section Date Range: From patient's date of to the date document was created. This section includes ALL of a patient's completed or amended [place] Advance and Rescinded Directives. The entries below indicate that a directive exists for the patient, but an actual copy is not included with this document. The data comes from all [place] facilities. Date Advance Directives Provider Source Jul 06, 2009 ADVANCE DIRECTIVE KEESHA JONES [place] Encounter Notes: All associated encounter notes This section contains the clinical notes associated to the Encounter. Date/Time Encounter Note(s) Provider Source Dec 09, 2021 12:18 ADMINISTRATIVE NOTE: CIERA CHIANG [facility] TRL WSTRN PM LOCAL TITLE: ADMINISTRATIVE NOTE [facility] STANDARD TITLE: ADMINISTRATIVE NOTE DATE OF NOTE: DEC 09, 2021@12:18 ENTRY DATE: DEC 09, 2021@12:18:56 AUTHOR: CIERA CHIANG COSIGNER: URGENCY: STATUS: COMPLETED PLEASE SEE NOTE 12/02/2021 AND UROLOGY CONSULT AND NOTE THAT WAS PLACED ON UROLOGY CONSULT 12/09 /yee/ CIERA QUINN Signed: 12/09/2021 12:20 Receipt Acknowledged By: * AWAITING SIGNATURE * IAIN MAURICIO * AWAITING SIGNATURE * QUINTON MARINO
--- OUTSIDE RECORDS SUMMARY | 2022-11-24 16:17 | XMS_ITS ---
:1960 Author Organization Department [facility] rs Address [address] [place] [address] Support Name Relationship Address Phone DIMPLESUNNY Unavailable [address] [place] [address] SUNNY MUSA Unavailable [address] [place] [address] Insurance Providers: All historical and current Section [...] MEDICARE MEDICARE PART Jul 20, PART A [id number] Gail QUINTANILLA PATIENT (WNR) (M) A 2009A 4 ERARD MEDICARE MEDICARE PART Jul 20, PART B [id number] Gail QUINTANILLA PATIENT (WNR) (M) B 2009A 4 [place] MEDICARE MEDICARE PART Jul 20, PART A [id number] [id number] Gail QUINTANILLA PATIENT (WNR) (M) A 2009A [place] MEDICARE MEDICARE PART Jul 20, PART B [id number] [phone] Gail QUINTANILLA PATIENT (WNR) (M) B 2009A [place] Selected Encounter This section includes the information on record at [place] for the Encounter. Date/Time Encounter Type Encounter Description Reason Provider Source Dec 15, 2021 10:12 Outpatient Encounter PRIMARY CARE/MEDICINE AM IHE Encounter Template Text not used by [place] Plan of Treatment: Future Appointments (+ 6 months) and Future Tests (+/- 45 days) The Plan of Treatment section includes future care activities for the patient from all [place] treatmentfacilities. This section includes future appointments and future orders which are active, pending orscheduled.Future Appointments This section includes appointments that were scheduled to occur 6 months from the date of the Encounter, up to a maximum of 20 appointments. The data comes from all [place] treatment facilities. Appointment Date/Time Appointment Type Appointment Facili ty Name Jan 03, 2022 01:40 PM [facility] Advance Directives: All historical and current Section Date Range: From patient's date of to the date document was created. This section includes ALL of a patient's completed or amended [facility] Advance and Rescinded Directives. The entries below indicate that a directive exists for the patient, but an actual copy is not included with this document. The data comes from all [place] facilities. Date Advance Directives Provider Source Jul 06, 2009 ADVANCE DIRECTIVE KEESHA JONES [place] Encounter Notes: All associated encounter notes This section contains the clinical notes associated to the Encounter. Date/Time Encounter Note(s) Provider Source Dec 15, 2021 10:12 AM ADMINISTRATIVE NOTE: EZ FELIPE [facility] TITLE: ADMINISTRATIVE NOTE STANDARD TITLE: ADMINISTRATIVE NOTE DATE OF NOTE: DEC 15, 2021@10:12 ENTRY DATE: DEC 15, 2021@10:12:20 AUTHOR: EZ FELIPE EXP COSIGNER: URGENCY: STATUS: COMPLETED >> Requested Records via Right Fax from : [facility] - Dr Ferguson- Most recent lab results. Confirmation of success ful fax sent was received. GENNA MUSA /yee/ EZ FELIPE ADVANCED CLIENT ACCOUNT ASSISTANT Signed: 12/15/2021 10:13
--- OUTSIDE RECORDS SUMMARY | 2022-11-24 16:17 | XMS_ITS | Encounter Summary ---
:1960 Author Organization Department [facility] rs Address [address] [place] [address] Support Name Relationship Address Phone DIMPLESUNNY Unavailable [address] [place] [address] SUNNY MUSA Unavailable [address] [place] [address] Insurance Providers: All historical and current Section [...] MEDICARE MEDICARE PART Jul 20, PART A [id number] Gail QUINTANILLA PATIENT (WNR) (M) A 2009A 4 ERARD MEDICARE MEDICARE PART Jul 20, PART B [id number] Gail QUINTANILLA PATIENT (WNR) (M) B 2009A 4 ERARD MEDICARE MEDICARE PART Jul 20, PART A [id number] [id number] Gail QUINTANILLA PATIENT (WNR) (M) A 2009A 00 ERARD MEDICARE MEDICARE PART Jul 20, PART B [id number] [phone] Gail QUINTANILLA PATIENT (WNR) (M) B 2009A ERARD Selected Encounter This section includes the information on record at [place] for the Encounter. Date/Time Encounter Type Encounter Description Reason Provider Source Dec 20, 2021 08:52 Outpatient Encounter PRIMARY CARE/MEDICINE AM IHE Encounter Template Text not used by [place] Plan of Treatment: Future Appointments (+ 6 months) and Future Tests (+/- 45 days) The Plan of Treatment section includes future care activities for the patient from all [place] treatmentfacilities. This section includes future appointments and future orders which are active, pending orscheduled.Future Appointments This section includes appointments that were scheduled to occur 6 months from the date of the Encounter, up to a maximum of 20 appointments. The data comes from all [place] treatment facilities. Appointment Date/Time Appointment Type Appointment Facili ty Name Jan 03, 2022 01:40 PM AMBULATORY - MEDICINE [facility] Advance Directives: All historical and current Section Date Range: From patient's date of to the date document was created. This section includes ALL of a patient's completed or amended [place] Advance and Rescinded Directives. The entries below indicate that a directive exists for the patient, but an actual copy is not included with this document. The data comes from all [place] facilities. Date Advance Directives Provider Source Jul 06, 2009 ADVANCE DIRECTIVE KEESHA JONES Encounter Notes: All associated encounter notes This section contains the clinical notes associated to the Encounter. Date/Time Encounter Note(s) Provider Source Dec 20, 2021 08:52 AM PRIMARY CARE TELEPHONE ENCOUNTER NOTE: EZ WEBB LOCAL TITLE: TELEPHONE NOTE/PRIMARY CARE STANDARD TITLE: PRIMARY CARE TELEPHONE ENCOUNTER NOTE DATE OF NOTE: DEC 20, 2021@08:52 ENTRY DATE: DEC 20, 2021@08:52:16 AUTHOR: EZ FELIPE EXP COSIGNER: URGENCY: STATUS: COMPLETED TELEPHONE NOTE/PRIMARY CARE Has ADDENDA Called PATIENT PHONE - PHONE NUMBER [CELLULAR] - Re: Scheduling/rescheduling veterans appointment (X) Left voice message for to call and s chedule appointment. Upcoming Appointments: 01/03/2022 13:40 [facility] had an appt on 12/22/21 @ 1500 t hat was CXC due to PCP taking leave in the afternoon. At the time o f this note these is an opening for 12/22/21 @ 0930. PLEASE reach out to Pole Truck Driver if [place] ca lls back in order to get him RS'd in a timely manner. /yee/ EZ FELIPE ADVANCED JOB TRAINING SUPERVISOR Signed: 12/20/2021 08:53 12/20/2021 ADDENDUM STATUS: COMPLETED S/W , who states he cannot make t he 0930 appt, as he needs an afternoon appt (1500). Pole Truck Driver offered appt on 12/29/21 @ 1500; however, states he was driving and would need to check his calendar . When calls back, please book next available appt at 1500 (Or reac h out to Pole Truck Driver via TEAMS in order to RS in a timely manner) /yee/ EZ FELIPE ADVANCED JOB TRAINING SUPERVISOR Signed: 12/20/2021 12:05
--- OUTSIDE RECORDS SUMMARY | 2022-11-24 16:17 | XMS_ITS | Encounter Summary ---
:1960 Author Organization [facility] Address [address] [place] [address] Support Name Relationship Address Phone DIMPLESUNNY Unavailable [address] [place] [address] SUNNY MUSA Unavailable [address] [place] [address] Insurance Providers: All historical and current Section [...] MEDICARE MEDICARE PART Jul 20, PART A [id number] Gail QUINTANILLA PATIENT (WNR) (M) A 2009A 4 ERARD MEDICARE MEDICARE PART Jul 20, PART B [id number] Gail QUINTANILLA PATIENT (WNR) (M) B 2009A 4 ERARD MEDICARE MEDICARE PART Jul 20, PART A [id number] [id number] Gail QUINTANILLA PATIENT (WNR) (M) A 2009A 00 ERARD MEDICARE MEDICARE PART Jul 20, PART B [id number] [id number] Gail QUINTANILLA PATIENT (WNR) (M) B 2009A ERARD Selected Encounter This section includes the information on record at [facility] for the Encounter. Date/Time Encounter Type Encounter Description Reason Provider Source Jan 03, 2022 01:40 Outpatient Encounter COMMUNITY CARE PM CONSULT IHE Encounter Template Text not used by VA Advance Directives: All historical and current Section Date Range: From patient's date of to the date document was created. This section includes ALL of a patient's completed or amended [place] Advance and Rescinded Directives. The entries below indicate that a directive exists for the patient, but an actual copy is not included with this document. The data comes from all [place] facilities. Date Advance Directives Provider Source Jul 06, 2009 ADVANCE DIRECTIVE KEESHA JONES Encounter Notes: All associated encounter notes This section contains the clinical notes associated to the Encounter. Date/Time Encounter Note(s) Provider Source Jan 20, 2022 11:06 AM PREVENTIVE MEDICINE NURSING NOTE: BAM SPIVEY [place] [facility] LOCAL TITLE: CLINICAL REMINDERS/NURSING [place] [facility] STANDARD TITLE: PREVENTIVE MEDICINE NURSING NOTE DATE OF NOTE: JAN 20, 2022@11:06 ENTRY DATE: JAN 20, 2022@11:06:47 AUTHOR: BAM SPIVEY EXP COSIGNER: URGENCY: STATUS: COMPLETED DM Nephropathy Screening: Patient has documentation of outside urine Micr oalbumin Creatinine results: Test date: August 01, 2021 Location: Outside Healthcare Provider Results: micro- 34.2, creatinine 270 /es/ BAM SPIVEY LPN PACT 10 Signed: 01/20/2022 11:08 Jan 20, 2022 11:00 AM NURSING NONVA NOTE: BAM SPIVEY [place] [facility] LOCAL TITLE: OUTSIDE LAB RESULTS [place] [facility] STANDARD TITLE: NURSING NONVA NOTE DATE OF NOTE: JAN 20, 2022@11:00 ENTRY DATE: JAN 20, 2022@11:01:09 AUTHOR: BAM SPIVEY EXP COSIGNER: URGENCY: STATUS: COMPLETED Outside Lab Values Date of Lab draw: Jul Location of lab tests: Notated Outside Lab Values: BMP: GLUCOSE 159 BUN 19 CREATININE 1.06 eGFR (IDMS) >60 SODIUM 140 K+ 4.8 CL 110 CO2 27 CBC: WBC 6.0 RBC 4.8 HGB 14.0 HCT 40.2 MCV 84.5 MCH 29.4 MCHC 34.8 RDW 13.2 PLT 167 LYMPH % 27.0 MONO % 8.2 NE % 61.5 NEUTABS 3.68 LYMABS 1.62 MONOABS 0.49 EOSABS 0.14 BASOABS 0.04 LIPID PANEL: CHOL 178 TRIG 136 HDL 38 LDL 113 CHO/HDL 4.7 LIVER PANEL: ALBUMIN 4.1 T. BILI 0.7 AST 30 /es/ BAM SPIVEY LPN PACT 10 Signed: 01/20/2022 11:06
--- OUTSIDE RECORDS SUMMARY | 2022-11-24 16:17 | XMS_ITS | Encounter Summary ---
:1960 Author Organization Department [facility] rs Address [address] [place] [address] Support Name Relationship Address Phone DIMPLESUNNY Unavailable [address] [place] [address] SUNNY MUSA Unavailable [address] [place] [place] [address] Insurance Providers: All historical and current Section [...] [place] MEDICARE MEDICARE PART Jul 20, PART B [id number] Gail QUINTANILLA PATIENT (WNR) (M) B 2009A 4 ERARD MEDICARE MEDICARE PART Jul 20, PART A [id number] Gail QUINTANILLA PATIENT (WNR) (M) A 2009A 4 ER[place] MEDICARE MEDICARE PART Jul 20, PART A [id number] [id number] Gail QUINTANILLA PATIENT (WNR) (M) A 2009A 00 ER[place] MEDICARE MEDICARE PART Jul 20, PART B [id number] [phone] Gail QUINTANILLA PATIENT (WNR) (M) B 2009A ERARD Selected Encounter This section includes the information on record at [place] for the Encounter. Date/Time Encounter Type Encounter Description Reason Provider Source Dec 21, 2021 12:19 Outpatient Encounter PRIMARY CARE/MEDICINE PM IHE Encounter Template Text not used by VA Plan of Treatment: Future Appointments (+ 6 months) and Future Tests (+/- 45 days) The Plan of Treatment section includes future care activities for the patient from all [place] treatmentfacilities. This section includes future appointments and future orders which are active, pending orscheduled.Future Appointments This section includes appointments that were scheduled to occur 6 months from the date of the Encounter, up to a maximum of 20 appointments. The data comes from all [place] treatment facilities. Appointment Date/Time Appointment Type Appointment Facili ty Name Jan 03, 2022 01:40 PM AMBULATORY - MEDICINE [facility] Advance Directives: All historical and current Section Date Range: From patient's date of to the date document was created. This section includes ALL of a patient's completed or amended [place] Advance and Rescinded Directives. The entries below indicate that a directive exists for the patient, but an actual copy is not included with this document. The data comes from all [place] facilities. Date Advance Directives Provider Source Jul 06, 2009 ADVANCE DIRECTIVE KEESHA JONES Encounter Notes: All associated encounter notes This section contains the clinical notes associated to the Encounter. Date/Time Encounter Note(s) Provider Source Dec 21, 2021 12:19 PM PREVENTIVE MEDICINE NURSING NOTE: Jr MARINO LOCAL TITLE: CLINICAL REMINDERS/NURSING STANDARD TITLE: PREVENTIVE MEDICINE NURSING NOTE DATE OF NOTE: DEC 21, 2021@12:19 ENTRY DATE: DEC 21, 2021@12:20:05 AUTHOR: QUINTON MARINO EXP COSIGNER: URGENCY: STATUS: COMPLETED Hemoglobin A1C: had HBA1C result from another health [facility] (results required). Date: August 01, 2021 Location: Outside Healthcare Provider Results: 6.0 Lipid Screening: has documentation of outside lipid prof ile results. Outside Location and date. Date: August 01, 2021 Location: Outside Healthcare Provider Total Cholesterol result: 178 Triglycerides result: 136 HDL result: 38 LDL result: 113 /es/ QUINTON MARINO APRICOT WASHER NURSE Signed: 12/21/2021 12:25
--- OUTSIDE RECORDS SUMMARY | 2022-11-24 16:17 | XMS_ITS | Encounter Summary ---
:1960 Author Organization [facility] Address [address] [place] [address] Support Name Relationship Address Phone DIMPLESUNNY Unavailable [address] [place] [address] SUNNY MUSA Unavailable [address] [place] [address] Insurance Providers: All historical and current Section [...] MEDICARE MEDICARE PART Jul 20, PART A [id number] Gail QUINTANILLA PATIENT (WNR) (M) A 2009A ERARD MEDICARE MEDICARE PART Jul 20, PART B [id number] Gail QUINTANILLA PATIENT (WNR) (M) B 2009A ER[place] MEDICARE MEDICARE PART Jul 20, PART A [id number] [id number] Gail QUINTANILLA PATIENT (WNR) (M) A 2009A ER[place] MEDICARE MEDICARE PART Jul 20, PART B [id number] [id number] Gail QUINTANILLA PATIENT (WNR) (M) B 2009 ERARD Selected Encounter This section includes the information on record at [place] for the Encounter. Date/Time Encounter Type Encounter Description Reason Provider Source Dec 02, 2021 01:18 Outpatient Encounter TELEPHONE TRIAGE PM IHE Encounter Template Text not used by VA Plan of Treatment: Future Appointments (+ 6 months) and Future Tests (+/- 45 days) The Plan of Treatment section includes future care activities for the patient from all [place] treatmentfacilities. This section includes future appointments and future orders which are active, pending orscheduled.Future Appointments This section includes appointments that were scheduled to occur 6 months from the date of the Encounter, up to a maximum of 20 appointments. The data comes from all [place] treatment facilities. Appointment Date/Time Appointment Type Appointment Facili ty Name Jan 03, 2022 01:40 PM [facility] Advance Directives: All historical and current Section Date Range: From patient's date of to the date document was created. This section includes ALL of a patient's completed or amended [place] Advance and Rescinded Directives. The entries below indicate that a directive exists for the patient, but an actual copy is not included with this document. The data comes from all [place] facilities. Date Advance Directives Provider Source Jul 06, 2009 ADVANCE DIRECTIVE KEESHA JONES [place] Encounter Notes: All associated encounter notes This section contains the clinical notes associated to the Encounter. Date/Time Encounter Note(s) Provider Source Dec 02, 2021 01:18 PM TELEPHONE ENCOUNTER NOTE: CAMACHO [facility]RADE [facility] TITLE: VISN 1 CCC ACTION REQUIRED [facility] STANDARD TITLE: TELEPHONE ENCOUNTER NOTE DATE OF NOTE: DEC 02, 2021@13:18:13 ENTRY DATE: DEC 02, 2021@13:19:19 AUTHOR: CAMACHO ANDRADE EXP COSIGNER: URGENCY: STATUS: COMPLETED VISN 1 CCC ACTION REQUIRED Has ADDENDA The patient, GENNA MUSA ([id number]) called the call center. The following identifiers were used to verify th is patient: . SSN. Contact Type of call: REFERRAL/CONSULT REQUEST. Caller Response: ADM CALL RESOLVED Caller Area: [facility] Provider Info: LOCAL - [place] ([id number]) PACT: SO PACT 10 (Focus: Primary Care Only) Primary Care Provider: Purnima Wilkins Certified Solid Waste Facility Operator: Mary Marino PHONE:[phone] Clinical Associate: Bam Spivey PHONE: [phone] Medical Investigator: Carley Garcia PACT Clinical Pharmacist: Amy Dominguez Clinical POC: Administrative POC: Medical Investigator Carley Garcia Author: CAMACHO ANDRADE Comments: [facility] is calling in to discuss his Urology con sult that was placed in October. [place] has not heard anything and would like a c\b at Evaluation/Management Code: HC PRO PHONE CALL 5- 10 MIN ([phone]). Starting at: 12/02/2021 @ 1:18:13 PM Ending at: 12/02/2021 @ 1:18:52 PM Length: 0 minutes. Chief Complaint: Not applicable to call. Class Code: Other specified counseling. Patient's Email Address: /yee/ CAMACHO ANDRADE ADVANCED GOLD LEAF ROLLER Signed: 12/02/2021 13:19 Receipt Acknowledged By: 12/02/2021 15:27 /yee/ MARY MARINO HEAD PUMPER NURSE 12/02/2021 15:35 /yee/ BAM SPIVEY LPN PACT 10 12/02/2021 ADDENDUM STATUS: COMPLETED CC alerted /ashley MARINO HEAD PUMPER NURSE Signed: 12/02/2021 15:27
--- OUTSIDE RECORDS SUMMARY | 2022-11-24 16:18 | XMS_ITS | Encounter Summary ---
:[address] [facility] Address [address] [place] [address] Support Name Relationship Address Phone DIMPLESUNNY Unavailable [address] [place] [address] SUNNY MUSA Unavailable [address] [place] [address] Insurance Providers: All historical and current Section [...] MEDICARE MEDICARE PART Jul 20, PART B [id number] Gail QUINTANILLA PATIENT (WNR) (M) B 2009A ERARD MEDICARE MEDICARE PART Jul 20, PART A [id number] Gail QUINTANILLA PATIENT (WNR) (M) A 2009A [place] MEDICARE MEDICARE PART Jul 20, PART A [id number] [id number] Gail QUINTANILLA PATIENT (WNR) (M) A 2009A [place] MEDICARE MEDICARE PART Jul 20, PART B [id number] [phone] Gail QUINTANILLA PATIENT (WNR) (M) B 2009 ERARD Selected Encounter This section includes the information on record at [place] for the Encounter. Date/Time Encounter Type Encounter Description Reason Provider Source May 01, 2022 12:09 Outpatient Encounter TELEPHONE TRIAGE PM IHE Encounter Template Text not used by VA Plan of Treatment: Future Appointments (+ 6 months) and Future Tests (+/- 45 days) The Plan of Treatment section includes future care activities for the patient from all [place] treatmentfacilities. This section includes future appointments and future orders which are active, pending orscheduled.Future Appointments This section includes appointments that were scheduled to occur 6 months from the date of the Encounter, up to a maximum of 20 appointments. The data comes from all [place] treatment facilities. Appointment Date/Time Appointment Type Appointment Facili ty Name Jul 05, 2022 11:00 AM AMBULATORY MEDICINE [facility] Jul 06, 2022 12:00 PM [facility] Advance Directives: All historical and current Section Date Range: From patient's date of to the date document was created. This section includes ALL of a patient's completed or amended [place] Advance and Rescinded Directives. The entries below indicate that a directive exists for the patient, but an actual copy is not included with this document. The data comes from all [place] facilities. Date Advance Directives Provider Source Jul 06, 2009 ADVANCE DIRECTIVE KEESHA JONES [place] Encounter Notes: All associated encounter notes This section contains the clinical notes associated to the Encounter. Date/Time Encounter Note(s) Provider Source May 01, 2022 12:09 PM TELEPHONE ENCOUNTER NOTE: JOCELYN HUTCHINSON [facility] TITLE: VISN 1 CCC ACTION REQUIRED [facility] STANDARD TITLE: TELEPHONE ENCOUNTER NOTE DATE OF NOTE: MAY 01, 2022@12:09:32 ENTRY DATE: MAY 01, 2022@12:12:18 AUTHOR: JOCELYN HUTCHINSON EXP COSIGNER: URGENCY: STATUS: COMPLETED VISN 1 CCC ACTION REQUIRED Has ADDENDA The patient, GENNA MUSA ([id number]) called the call center. The following identifiers were used to verify th is patient: . SSN. Contact Type of call: PHARMACY. 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 is requesting a call back. Evaluation/Management Code: HC PRO PHONE CALL 5- 10 MIN ([phone]). Starting at: 05/01/2022 @ 12:09:32 PM Ending at: 05/01/2022 @ 12:11:10 PM Length: 1 minutes. Chief Complaint: Not applicable to call. Class Code: Other specified counseling. Patient's Email Address: [email or web address] /yee/ JOCELYN ROTH [address] [facility] AMSA Signed: 05/01/2022 12:12 Receipt Acknowledged By: * AWAITING SIGNATURE * QUINTON MARINO * AWAITING SIGNATURE * BAM SPIVEY 05/01/2022 ADDENDUM STATUS: COMPLETED Edex 20 MCG is currently on backorder. Contacted the office to see if agreeable to any alternatives. Will reach out to w shiv I receive a response. /yee/ CONNOR BRITO CPHT AUTHORIZER Signed: 05/01/2022 13:13
--- OUTSIDE RECORDS SUMMARY | 2022-11-24 16:18 | XMS_ITS ---
:1960 Author Organization Department [facility] rs Address [address] [place] [id number] Support Name Relationship Address Phone DIMPLESUNNY Unavailable [address] [place] [address] SUNNY MUSA Unavailable [address] [place] [address] Insurance Providers: All historical and current Section [...] MEDICARE MEDICARE PART Jul 20, PART B [id number] Gail QUINTANILLA PATIENT (WNR) (M) B 2009A 4 ERARD MEDICARE MEDICARE PART Jul 20, PART A [id number] Gail QUINTANILLA PATIENT (WNR) (M) A 2009A 4 ER[place] MEDICARE MEDICARE PART Jul 20, PART A [id number] [phone] Gail QUINTANILLA PATIENT (WNR) (M) A 2009A 00 [place] MEDICARE MEDICARE PART Jul 20, PART B [id number] [phone] Gail QUINTANILLA PATIENT (WNR) (M) B 2009A ERARD Selected Encounter This section includes the information on record at [place] for the Encounter. Date/Time Encounter Type Encounter Description Reason Provider Source Jan 30, 2022 01:15 Outpatient Encounter ADMIN PAT ACTIVTIES PM (MASNONCT) IHE Encounter Template Text not used by VA Plan of Treatment: Future Appointments (+ 6 months) and Future Tests (+/- 45 days) The Plan of Treatment section includes future care activities for the patient from all [place] treatmentfacilities. This section includes future appointments and future orders which are active, pending orscheduled.Future Appointments This section includes appointments that were scheduled to occur 6 months from the date of the Encounter, up to a maximum of 20 appointments. The data comes from all [place] treatment facilities. Appointment Date/Time Appointment Type Appointment Facili ty Name Jul 05, 2022 11:00 AM [facility] MEDICINE [facility] Jul 06, 2022 12:00 PM [facility] Advance Directives: All historical and current Section Date Range: From patient's date of to the date document was created. This section includes ALL of a patient's completed or amended [place] Advance and Rescinded Directives. The entries below indicate that a directive exists for the patient, but an actual copy is not included with this document. The data comes from all [place] facilities. Date Advance Directives Provider Source Jul 06, 2009 ADVANCE DIRECTIVE KEESHA JONES [place] Encounter Notes: All associated encounter notes This section contains the clinical notes associated to the Encounter. Date/Time Encounter Note(s) Provider Source Jan 30, 2022 01:15 PM MEDICATION MGT NOTE[facility] TITLE: MEDICATION [facility] STANDARD TITLE: MEDICATION MGT NOTE DATE OF NOTE: JAN 30, 2022@13:15 ENTRY DATE: JAN 30, 2022@13:16:08 AUTHOR: PEGGY SUTTON EXP COSIGNER: URGENCY: STATUS: COMPLETED Medication on back order and is not available: ALPROSTADIL 20MCG/CARTRIDGE SYSTEM /es/ PEGGY SUTTON [facility] PIERCER OPERATOR Signed: 01/30/2022 13:16
--- OUTSIDE RECORDS SUMMARY | 2022-11-24 16:18 | XMS_ITS | Encounter Summary ---
:1960 Author Organization [facility] Address [address] [place] [address] Support Name Relationship Address Phone DIMPLESUNNY Unavailable [address] [place] [address] SUNNY MUSA Unavailable [address] [place] [address] Insurance Providers: All historical and current Section [...] MEDICARE MEDICARE PART Jul 20, PART A [id number] Gail QUINTANILLA PATIENT (WNR) (M) A 2009A 4 ERARD MEDICARE MEDICARE PART Jul 20, PART B [id number] Gail QUINTANILLA PATIENT (WNR) (M) B 2009A 4 [place] MEDICARE MEDICARE PART Jul 20, PART A [id number] [id number] Gail QUINTANILLA PATIENT (WNR) (M) A 2009A 00 [place] MEDICARE MEDICARE PART Sep , PART B [id number] [phone] Gail QUINTANILLA PATIENT (WNR) (M) B 2009A ERARD Selected Encounter This section includes the information on record at [facility] for the Encounter. Date/Time Encounter Type Encounter Description Reason Provider Source Jan 03, 2022 12:00 Outpatient Encounter COMMUNITY CARE AM CONSULT IHE Encounter Template Text not used by VA Advance Directives: All historical and current Section Date Range: From patient's date of to the date document was created. This section includes ALL of a patient's completed or amended [place] Advance and Rescinded Directives. The entries below indicate that a directive exists for the patient, but an actual copy is not included with this document. The data comes from all [place] facilities. Date Advance Directives Provider Source Jul 06, 2009 ADVANCE DIRECTIVE KAREN,KEESHA Norris JEWETT Encounter Notes: All associated encounter notes This section contains the clinical notes associated to the Encounter. Date/Time Encounter Note(s) Provider Source Jan 03, 2022 12:00 AM NONVA CONSULT: [place] [facility] LOCAL TITLE: COMMUNITY CARE-CONSULT RESULT NOTE [facility] STANDARD TITLE: NONVA CONSULT DATE OF NOTE: JAN 03, 2022 ENTRY DATE: JAN 31 022@19:20:44 AUTHOR: JOHN CAMPBELL COSIGNER: URGENCY: STATUS: COMPLETED VistA Imaging - Scanned Document SCANNED DOCUMENT SIGNATURE NOT REQUIRED Electronically Filed: 2022 by: JOHN CAMPEBLL MOTOR POOL DRIVER
--- OUTSIDE RECORDS SUMMARY | 2022-11-24 16:19 | XMS_ITS | Encounter Summary ---
:1960 Author Organization [facility] Address [address] [place] [address] Support Name Relationship Address Phone DIMPLESUNNY Unavailable [address] [place] [address] SUNNY MUSA Unavailable [address] [place] [address] Insurance Providers: All historical and current Section [...] MEDICARE MEDICARE PART Jul 20, PART A [id number] Gail QUINTANILLA PATIENT (WNR) (M) A 2009A ERARD MEDICARE MEDICARE PART Jul 20, PART B [id number] Gail QUINTANILLA PATIENT (WNR) (M) B 2009A ER[place] MEDICARE MEDICARE PART Jul 20, PART A [id number] [id number] Gail QUINTANILLA PATIENT (WNR) (M) A 2009A ER[place] MEDICARE MEDICARE PART Jul 20, PART B [id number] [phone] Gail QUINTANILLA PATIENT (WNR) (M) B 2009A ERARD Selected Encounter This section includes the information on record at [place] for the Encounter. Date/Time Encounter Type Encounter Description Reason Provider Source May 10, 2022 02:53 Outpatient Encounter TELEPHONE TRIAGE PM IHE Encounter Template Text not used by [facility] Plan of Treatment: Future Appointments (+ 6 months) and Future Tests (+/- 45 days) The Plan of Treatment section includes future care activities for the patient from all [place] [facility]. This section includes future appointments and future orders which are active, pending orscheduled.Future Appointments This section includes appointments that were scheduled to occur 6 months from the date of the Encounter, up to a maximum of 20 appointments. The data comes from all [place] treatment facilities. Appointment Date/Time Appointment Type Appointment Facili ty Name Jul 05, 2022 11:00 AM AMBULATORY MEDICINE [facility] Jul 06, 2022 12:00 PM [facility] MEDICINE [facility] Advance Directives: All historical and current Section Date Range: From patient's date of to the date document was created. This section includes ALL of a patient's completed or amended [place] Advance and Rescinded Directives. The entries below indicate that a directive exists for the patient, but an actual copy is not included with this document. The data comes from all [place] facilities. Date Advance Directives Provider Source Jul 06, 2009 ADVANCE DIRECTIVE KEESHA JONES [place] Encounter Notes: All associated encounter notes This section contains the clinical notes associated to the Encounter. Date/Time Encounter Note(s) Provider Source May 10, 2022 02:53 PM TELEPHONE ENCOUNTER NOTE: JOCELYN HUTCHINSON [facility] LOCAL TITLE: VISN 1 [facility] MED RENEWAL [facility] STANDARD TITLE: TELEPHONE ENCOUNTER NOTE DATE OF NOTE: MAY 10, 2022@14:53 ENTRY DATE: MAY 10, 2022@14:55:38 AUTHOR: JOCELYN HUTCHINSON EXP COSIGNER: URGENCY: STATUS: COMPLETED VISN 1 [facility] MED RENEWAL Has ADDENDA The patient, GENNA MUSA ([id number]) called the call center. The following identifiers were used to verify th is patient: . SSN. Contact Type of call: PHARMACY. Caller Response: ADM CALL RESOLVED Caller Area: [facility] PCMM Provider Info: [facility] ([id number]) PACT: SO PACT 10 (Focus: Primary Care Only) Primary Care Provider: IAIN MAURICIO Carding Machine Operator: QUINTON MARINO PHONE:[phone] Clinical Associate: BAM SPIVEY PHONE: [phone] Animal Feeder: EZ FELIPE PACT Clinical Pharmacist: KYMBERLY BURGESS Clinical POC: Administrative POC: Animal Feeder EZ FELIPE Author: JOCELYN HUTCHINSON Comments: called to check the status of his reques t for nebulizer solution. He stated he would like to crab picker upon approval. Mary Jo soriano is requesting a call back [phone]. Evaluation/Management Code: HC PRO PHONE CALL 5- 10 MIN ([phone]). Starting at: 05/10/2022 @ 2:53:00 PM Ending at: 05/10/2022 @ 2:54:31 PM Length: 1 minutes. Chief Complaint: Not applicable to call. Class Code: Other specified counseling. Patient's Email Address: [email or web address]/ JOCELYN ROTH 1 [facility] LEAD AMSA Signed: 05/10/2022 14:55 Receipt Acknowledged By: * AWAITING SIGNATURE * QUINTON MARINO 05/11/2022 08:41 /es/ BAM SPIVEY LPN PACT 10 05/10/2022 ADDENDUM STATUS: COMPLETED Albuterol neb Rx [facility]. Thank you /yee/ IAIN MAURICIO MD Primary Care Physician Signed: 05/10/2022 17:41 Receipt Acknowledged By: 05/11/2022 10:28 /yee/ QUINTON MARINO WAFER BATTER MIXER NURSE 05/11/2022 ADDENDUM STATUS: COMPLETED called the and advised PCP wrote RX for crab picker. /yee/ QUINTON MARINO RN STAFF NURSE Signed: 05/11/2022 10:28
--- OUTSIDE RECORDS SUMMARY | 2022-11-24 16:19 | XMS_ITS ---
:1960 Author Organization Department [facility] Address [address] [place] [id number] Support Name Relationship Address Phone DIMPLESUNNY Unavailable [address] [place] [address] SUNNY MUSA Unavailable [address] [place] [address] Insurance Providers: All historical and current Section [...] MEDICARE MEDICARE PART Jul 20, PART B [id number] Gail QUINTANILLA PATIENT (WNR) (M) B 2009A 4 ERARD MEDICARE MEDICARE PART Jul 20, PART A [id number] Gail QUINTANILLA PATIENT (WNR) (M) A 2009A 4 [place] MEDICARE MEDICARE PART Jul 20, PART A [id number] [id number] Gail QUINTANILLA PATIENT (WNR) (M) A 2009A [place] MEDICARE MEDICARE PART Jul 20, PART B [id number] [phone] Gail QUINTANILLA PATIENT (WNR) (M) B 2009A ERARD Selected Encounter This section includes the information on record at [place] for the Encounter. Date/Time Encounter Type Encounter Description Reason Provider Source May 09, 2022 04:42 Outpatient Encounter ADMIN PAT ACTIVTIES PM (MASNONCT) IHE Encounter Template Text not used by VA Plan of Treatment: Future Appointments (+ 6 months) and Future Tests (+/- 45 days) The Plan of Treatment section includes future care activities for the patient from all [place] treatment[facility]. This section includes future appointments and future orders which are active, pending orscheduled.Future Appointments This section includes appointments that were scheduled to occur 6 months from the date of the Encounter, up to a maximum of 20 appointments. The data comes from all [place] treatment facilities. Appointment Date/Time Appointment Type Appointment Facili ty Name Jul 05, 2022 11:00 AM AMBULATORY MEDICINE [facility] Jul 06, 2022 12:00 PM [facility] MEDICINE [facility] Advance Directives: All historical and current Section Date Range: From patient's date of to the date document was created. This section includes ALL of a patient's completed or amended [place] Advance and Rescinded Directives. The entries below indicate that a directive exists for the patient, but an actual copy is not included with this document. The data comes from all [place] facilities. Date Advance Directives Provider Source Jul 06, 2009 ADVANCE DIRECTIVE KEESHA JONES [place] Encounter Notes: All associated encounter notes This section contains the clinical notes associated to the Encounter. Date/Time Encounter Note(s) Provider Source May 09, 2022 04:42 PM TELEPHONE ENCOUNTER NOTE: SUSAN BRIONES [facility] TITLE: VISN 1 CCC ACTION REQUIRED [facility] STANDARD TITLE: TELEPHONE ENCOUNTER NOTE DATE OF NOTE: MAY 09, 2022@16:42:49 ENTRY DATE: MAY 09, 2022@16:46:19 AUTHOR: SUSAN BRIONES EXP COSIGNER: URGENCY: STATUS: COMPLETED VISN 1 CCC ACTION REQUIRED Has ADDENDA The patient, GENNA MUSA ([id number]) called the call center. The following identifiers were used to verify th is patient: SSN. Other: address. Contact Type of call: PHARMACY. Caller Response: ADM CALL RESOLVED Caller Area: [facility] PCMM Provider Info: [facility] ([id number]) PACT: SO PACT 10 (Focus: Primary Care Only) Primary Care Provider: IAIN MAURICIO Vice President: QUINTON MARINO PHONE:[phone] Clinical Associate: BAM SPIVEY PHONE: [phone] Music Composition Teacher: EZ FELIPE PACT Clinical Pharmacist: KYMBERLY BURGESS Clinical POC: Administrative POC: Music Composition Teacher EZ FELIPE Author: SUSAN BRIONES Comments: ALBUTERAL SULFATE INHALATION SOLUTION 0.083% 2.5 MG PER 3ML Pt needs this renewed, refilled and ready at the window at the CB. Please call him to discuss jose. Pt has an appointment on June 10, so needs this medication right away to keep himself out of the ER for breathing problems. Call [phone]. Thank you. Evaluation/Management Code: HC PRO PHONE CALL 5- 10 MIN ([phone]). Starting at: 05/09/2022 @ 4:42:49 PM Ending at: 05/09/2022 @ 4:44:46 PM Length: 1 minutes. Chief Complaint: Not applicable to call. Class Code: Other specified counseling. Patient's Email Address: [email or web address]/ SUSAN BRIONES VISN 1 [facility] AMSA Signed: 05/09/2022 16:46 Receipt Acknowledged By: 05/09/2022 22:18 /yee/ IAIN MAURICIO MD Primary Care Physician 05/10/2022 09:31 /yee/ QUINTON MARINO SOFTWARE SYSTEMS ENGINEER NURSE 05/09/2022 ADDENDUM STATUS: COMPLETED There is no record of this med having been dispe nsed through the [place]. Perhaps he can obtain a Rx for it to be filled t hrough the [place] pharmacy? Thank you /yee/ IAIN MAURICIO MD Primary Care Physician Signed: 05/09/2022 22:19 Receipt Acknowledged By: * AWAITING SIGNATURE * QUINTON MARION 05/10/2022 ADDENDUM STATUS: COMPLETED Please see note 10/13/20 - we gave him a nebulia zer and solution /yee/ QUINTON MARINO RN STAFF NURSE Signed: 05/10/2022 09:30 Receipt Acknowledged By: * AWAITING SIGNATURE * IAIN MAURICIO
--- OUTSIDE RECORDS SUMMARY | 2022-11-24 16:20 | XMS_ITS ---
:1960 Author Organization Department [facility] rs Address [address] [place] [address] Support Name Relationship Address Phone DIMPLESUNNY Unavailable [address] [place] [address] SUNNY MUSA Unavailable [address] [place] [address] Insurance Providers: All historical and current Section [...] MEDICARE MEDICARE PART Jul 20, PART A [id number] Gail QUINTANILLA PATIENT (WNR) (M) A 2009A 4 ERARD MEDICARE MEDICARE PART Jul 20, PART B [id number] Gail QUINTANILLA PATIENT (WNR) (M) B 2009A [place] MEDICARE MEDICARE PART Jul 20, PART A [id number] [id number] Gail QUINTANILLA PATIENT (WNR) (M) A 2009A [place] MEDICARE MEDICARE PART Jul 20, PART B [id number] [id number] Gail QUINTANILLA PATIENT (WNR) (M) B 2009A ERARD Selected Encounter This section includes the information on record at [place] for the Encounter. Date/Time Encounter Type Encounter Description Reason Provider Source Jul 05, 2022 12:49 Outpatient Encounter PRIMARY CARE/MEDICINE PM IHE Encounter Template Text not used by VA Plan of Treatment: Future Appointments (+ 6 months) and Future Tests (+/- 45 days) The Plan of Treatment section includes future care activities for the patient from all [place] treatmentfacilities. This section includes future appointments and future orders which are active, pending orscheduled.Future Appointments This section includes appointments that were scheduled to occur 6 months from the date of the Encounter, up to a maximum of 20 appointments. The data comes from all [place] treatment facilities. Appointment Date/Time Appointment Type Appointment Facili ty Name Jul 06, 2022 12:00 PM AMBULATORY - MEDICINE [facility] Advance Directives: All historical and current Section Date Range: From patient's date of to the date document was created. This section includes ALL of a patient's completed or amended [place] Advance and Rescinded Directives. The entries below indicate that a directive exists for the patient, but an actual copy is not included with this document. The data comes from all [place] facilities. Date Advance Directives Provider Source Jul 06, 2009 ADVANCE DIRECTIVE KEESHA JONES Encounter Notes: All associated encounter notes This section contains the clinical notes associated to the Encounter. Date/Time Encounter Note(s) Provider Source Jul 05, 2022 12:49 PM PRIMARY CARE NOTE: ARLEEN SMITH [place] LOCAL TITLE: WALK-IN NOTE PRIMARY CARE (T) STANDARD TITLE: PRIMARY CARE NOTE DATE OF NOTE: JUL 05, 2022@12:49 ENTRY DATE: JUL 05, 2022@12:49:28 AUTHOR: ARLEEN SMITH EXP COSIGNER: URGENCY: STATUS: COMPLETED WALK-IN NOTE PRIMARY CARE (T) Has ADDENDA * <====Click to Start Advanced Medical Support presents to the Primary Care clinic with the following request: [ X ]Medication Renewal/Refill [ ]Consultation with Team RN [ ]Symptoms [ ]Other The [place] states they are: [ ]Waiting [ X ]Not Waiting No Walk in visit scheduled with PACT Nurse [ X ] At this encounter the 's demographi cs were verified. [ X ] At this encounter the [place]'s Insurance information was verified. [ X ] At this encounter the below scheduled visi ts for the [place] were discussed and appointment reminder card wa s offered. Future appointments: 07/09/2023 09:30 CWM/NO/OPT CARLOSTRY/MADHURI [place] dropped off RX from [facility], he will be back to pick it up. Placed in Pact RN's mailbox. /es/ ARLEEN SMITH ADVANCED DAMAGE ADJUSTER Signed: 07/05/2022 12:51 07/05/2022 ADDENDUM STATUS: COMPLETED RX requires a prior auth, th erfore more info is needed from the prescriber - fax request sent to Dr. Kaylin paniagua for his recent OV note as well as labs. I called the to advise him of this. He reports his last A1C was 6.4 (not recent) - Jr Rojas is RX Ozempic based off Liver transplant Doctor tati michelle - the plan is to his Glipizide once he starts Ozempic - then monitor and eventually wean off the Glipizide completely. /es/ QUINTON MARINO, TITLE I TEACHER NURSE Signed: 07/05/2022 15:14
--- OUTSIDE RECORDS SUMMARY | 2022-11-24 16:20 | XMS_ITS | Encounter Summary ---
:1960 Author Organization [facility] Address [address] [place] [address] Support Name Relationship Address Phone DIMPLESUNNY Unavailable [address] [place] [address] SUNNY MUSA Unavailable [address] [place] [address] Insurance Providers: All historical and current Section [...] MEDICARE MEDICARE PART Jul 20, PART B [id number] Gail QUINTANILLA PATIENT (WNR) (M) B 2009A ERARD MEDICARE MEDICARE PART Jul 20, PART A [id number] Gail QUINTANILLA PATIENT (WNR) (M) A 2009A [place] MEDICARE MEDICARE PART Jul 20, PART A [id number] Gail QUINTANILLA PATIENT (WNR) (M) A 2009A ER[place] MEDICARE MEDICARE PART Jul 20, PART B [id number] [id number] Gail QUINTANILLA PATIENT (WNR) (M) B 2009A ERARD Selected Encounter This section includes the information on record at [place] for the Encounter. Date/Time Encounter Type Encounter Description Reason Provider Source May 01, 2022 12:00 Outpatient Encounter COMMUNITY CARE AM CONSULT IHE Encounter Template Text not used by VA Plan of Treatment: Future Appointments (+ 6 months) and Future Tests (+/- 45 days) The Plan of Treatment section includes future care activities for the patient from all [place] treatmentfacilities. This section includes future appointments and future orders which are active, pending orscheduled.Future Appointments This section includes appointments that were scheduled to occur 6 months from the date of the Encounter, up to a maximum of 20 appointments. The data comes from all [place] treatment facilities. Appointment Date/Time Appointment Type Appointment Facili ty Name Jul 05, 2022 11:00 AM AM[facility]ULATORY - [facility] Jul 06, 2022 12:00 PM [facility] Advance Directives: All historical and current Section Date Range: From patient's date of to the date document was created. This section includes ALL of a patient's completed or amended [place] Advance and Rescinded Directives. The entries below indicate that a directive exists for the patient, but an actual copy is not included with this document. The data comes from all [place] facilities. Date Advance Directives Provider Source Jul 06, 2009 ADVANCE DIRECTIVE KEESHA JONES [place] Encounter Notes: All associated encounter notes This section contains the clinical notes associated to the Encounter. Date/Time Encounter Note(s) Provider Source May 01, 2022 12:00 AM NONVA CONSULT: [place] [facility] LOC[facility] TITLE: COMMUNITY CARE-CONSULT RESULT NOTE [facility] STANDARD TITLE: NONVA CONSULT DATE OF NOTE: MAY 01, 2022 ENTRY DATE: MAY 23@10:02:52 AUTHOR: AGNES ANGUIANO EXP COSIGNER: URGENCY: STATUS: COMPLETED VistA Imaging - Scanned Document SCANNED DOCUMENT SIGNATURE NOT REQUIRED Electronically Filed: 05/23/2022 by: AGNES ANGUIANO OPTICAL COATING TECHNICIAN May 01, 2022 12:00 AM NONVA CONSULT: [facility] LOC[facility] TITLE: COMMUNITY CARE-CONSULT RESULT NOTE [facility] STANDARD TITLE: NONVA CONSULT DATE OF NOTE: MAY 01, 2022 ENTRY DATE: MAY 23@10:05:06 AUTHOR: AGNES ANGUIANO COSIGNER: URGENCY: STATUS: COMPLETED VistA Imaging - Scanned Document SCANNED DOCUMENT SIGNATURE NOT REQUIRED Electronically Filed: 05/23/2022 by: AGNES ANGUIANO OPTICAL COATING TECHNICIAN
--- OUTSIDE RECORDS SUMMARY | 2022-11-24 16:20 | XMS_ITS | Encounter Summary ---
:1960 Author Organization [facility] Address [address] [place] [address] Support Name Relationship Address Phone DIMPLESUNNY Unavailable [address] [place] [address] DIMPLESUNNY BRADLEY Unavailable [address] [place] [address] Insurance Providers: All historical and current Section [...] MEDICARE MEDICARE PART Jul 20, PART A [id number] [phone] Gail QUINTANILLA PATIENT (WNR) (M) A 2009A ERARD MEDICARE MEDICARE PART Jul 20, PART B [id number] Gail QUINTANILLA PATIENT (WNR) (M) B 2009A ERARD MEDICARE MEDICARE PART Jul 20, PART A [id number] [phone] Gail QUINTANILLA PATIENT (WNR) (M) A 2009A ERARD MEDICARE MEDICARE PART Jul 20, PART B [id number] [phone] Gail QUINTANILLA PATIENT (WNR) (M) B 2009 ERARD Selected Encounter This section includes the information on record at [place] for the Encounter. Date/Time Encounter Type Encounter Reason Provider Source Description Jul 05, 2022 EYE EXAM&TX OPTOMETRY ICD-10-CM E11.9 TRIP DHALIWAL 11:00 AM ESTAB PT 1/>VST Type 2 diabetes mellitus without complications with Provider Comments: DM Type 2 w/o Complications IHE Encounter Template Text not used by [place] Assessments - Encounter Diagnoses This section includes the primary and secondary diagnoses documented for the Encounter. Date/Time Primary/Secondary Diagnosis Name Provider Source Diagnosis Jul 05, 2022 PRIMARY Type 2 diabetes TRIP DHALIWAL [place] [facility] TRN 12:15 PM mellitus without [facility] complications Jul 05, 2022 SECONDARY Combined forms of TRIP DHALIWAL [facility] 12:15 PM age-related [facility] cataract, bilateral Jul 05, 2022 SECONDARY Regular TRIP DHALIWAL B [place] [facility] 12:15 PM astigmatism, [facility] bilateral Plan of Treatment: Future Appointments (+ 6 months) and Future Tests (+/- 45 days) The Plan of Treatment section includes future care activities for the patient from all [place] treatmentfacilities. This section includes future appointments and future orders which are active, pending orscheduled.Future Appointments This section includes appointments that were scheduled to occur 6 months from the date of the Encounter, up to a maximum of 20 appointments. The data comes from all [place] treatment facilities. Appointment Date/Time Appointment Type Appointment Facili ty Name Jul 06, 2022 12:00 PM AMBULATORY - MEDICINE [facility] Advance Directives: All historical and current Section Date Range: From patient's date of to the date document was created. This section includes ALL of a patient's completed or amended [place] Advance and Rescinded Directives. The entries below indicate that a directive exists for the patient, but an actual copy is not included with this document. The data comes from all [place] facilities. Date Advance Directives Provider Source Jul 06, 2009 ADVANCE DIRECTIVE KEESHA JONES [place] Encounter Notes: All associated encounter notes This section contains the clinical notes associated to the Encounter. Date/Time Encounter Note(s) Provider Source Jul 05, 2022 11:06 AM OPTOMETRY NOTE: ROASNNE VALENCIA [facility] W STRN LOCAL TITLE: OPTOMETRY NOTE [facility] STANDARD TITLE: OPTOMETRY NOTE DATE OF NOTE: JUL 05, 2022@11:06 ENTRY DATE: JUL 05, 2022@11:06:34 AUTHOR: ROSANNE VALENCIA EXP COSIGNER: DEVYN DHALIWAL URGENCY: STATUS: COMPLETED OPTOMETRY NOTE Has ADDENDA Active problems - Computerized Problem List is t he source for the followin. Erectile dysfunction (SNOMED CT [id number]) 2. Mixed hyperlipidemia 3. Type 2 diabetes mellitus 4. Primary Care Physician 5. Colonoscopy Screening 6. Asthma 7. Benign paroxysmal positional vertigo 8. Benign prostatic hypertrophy with outflow ob struction 9. Celiac disease 10. MRI L-S Spine 11/2009 11. Liver transplant recipient (SNOMED CT [id number]) 12. Hypertension 13. Hemochromatosis 14. History of Recurrent Kidney Stones 15. FAM HX-ISCHEM HEART DIS Active Outpatient Medications (including Supplie s): Active Outpatient Medications Status 1) ALBUTEROL 90MCG (CFC-F) 200D ORAL INHL INHALE 2 PUFFS ACTIVE BY MOUTH EVERY 6 HOURS NEEDED 2) ALPROSTADIL 20MCG/CARTRIDGE SYSTEM INJECT 1 V IAL INTO HOLD THE PENIS ONCE A WEEK FOR ERECTILE DYSFUNCTION 3) ALPROSTADIL 40MCG/CARTRIDGE INJ SYSTEM INJECT 1 VIAL ACTIVE INTO THE PENIS EVERY WEEK DIRECTED BY PROVID ER NEEDED FOR ERECTILE DYSFUNCTION Active Non-VA Medications Status 1) Non-VA CALCIUM 250MG/VITAMIN D 125 UNT TAB 1 TABLET ACTIVE BY MOUTH TWICE DAILY 2) Non-VA LORATADINE 10MG TAB 10MG BY MOUTH ONCE DAILY ACTIVE NEEDED 3) Non-VA MYCOPHENOLATE (CELLCEPT) 250MG CAP 500 MG BY ACTIVE MOUTH TWICE DAILY 4) Non-VA TACROLIMUS (PROGRAF) 1MG CAP 1MG BY MO UTH ACTIVE TWICE DAILY 5) Non-VA TAMSULOSIN HCL 0.4MG CAP 0.4MG BY MOUT H ACTIVE 8 Total Medications Glipizide 5mg BID HEMOGLOBIN A1C; BLOOD Gena. Date: 11/22/20 10:54 Test Name Result Units Range HEMOGLOBIN A1C 7.2 H % 4.0 - 5.6 Comment - 11/22/20 10:54: Testing perfor med by NGSP certified Galeana Enzymatic with CV <2%. Comment - 11/22/20 10:54: Th e Galeana HgA1C assay should not be used to diagnose or monitor Comment - 11/22/20 10:54: diabetes in patients w ith altered red cell lifespan such as Comment - 11/22/20 10:54: homozygous hemoglobin variants, Hb SC, HbF>5% and hemolytic anemia. Comment - 11/22/20 10:54: He terozygous variants do not affect this assay, HbAS, HbAC, HbAD, Comment - 11/22/20 10:54: HbAE, AbA2 Interpretation for HEMOGLOBIN A1C: Reference Ran ges: 4.0 - 5.6: normal, 5.7 - 6.4: pre-diabetes, >=6.5 % diabetic range- if patient has not yet been diagnosed with diabetes see [place] Diabetes Guidelines fo r more guidance. http://www.healthquality.[place].gov/guidelines/CD/d iabetes/ Allergies: LATEX, ASPIRIN RELATED MEDICATIONS, P ENICILLIN All medications including th ose prescribed by outside VA's, community providers, and all OTC meds were review ed and reconciled with patient to the best of their abilities. This 62 year old MALE is seen today for a diabet ic eye exam Last eye exam:06/2020 Reason for Visit/CC:Patient presents for a diabetic eye exam. His last A1c per chart is 7.2. He states his blood sugar has been good. He states he has been having blurred vision with associated headaches that he states may be sinus related and light sensitivity. Onset about 6 mon ths to a year ago in both eye both at distance and at near. OHx:diabetes not associated with retinopathy as well as early bilateral cataracts (-) Pain: (+) VIVAR: See cheif complaint (-) Diplopia: (-) Flashes: (-) Floaters: (-) Amaurosis Fugax/Tia's: (-) Eye Injury: (-) Eye Surgery: (-) TBI (-) FOHx: Current/Last Rx: OD: [place] -3.00 axis 092 20/20 OS: [place] -1.75 axis 080 20/20 +2.25 add 20/20 DVA ( )sc (x)cc OD 20/20-2 OS 20/20 Pupils: PERRL (-)APD EOMs: SAFE OU, (-) pain/diplopia Confrontation Visual Freeman: OD: FTFC OS: FTFC Subjective: DVA: OD: -0.50 -2.50 axis 092 20/20 OS: [place]beron -1.75 axis 080 20/20 +2.50 add 20/20 All the above pe rformed by student, reviewed by attending Anterior segment: Performed by student, repeated by attending SLE: Lids/Lashes: Dermatochalasis, ptosis with 2+ low er lid bags and trace capped meibomian glands OU Conjunctiva: clear and quiet OU Corneas: clear and quiet OU Iris: flat no NVI OU Anterior Chamber: deep and quiet OU Angles:3/4:1 T&N OU Lens: 1+NS, trace cortical OU Performed by student, reviewed by attending TONOMETRY: Time:11:27am OD 13 mm Hg OS 13 mm Hg Dilation: 1 gtt 1% Tropicamide OU and 1gtt 2.5% phenylephrine OU at (Pt. ed. on side effects) Time:11:28am Performed by student, repeated by attending Vitreous: PVD OU C/D (Size and Rim Description) OD 0.40 pink & healthy, no NVD, hemes or exudate s OS 0.40 pink & healthy, no NVD, hemes or exudate s Macula OD flat, intact, uniform pigment, no CSME, hemes or exudates OS flat, intact, uniform pigment, no CSME, hemes or exudates A/V: 1/2 OU increased light reflex Posterior Pole: clear, no NVE, hemes or exudates OU Periphery: Flat and intact (-)holes, tears, deta chments 360 OU Assessment/Plan: 1. Type two diabetes without retinopathy or macu lar edema OU -continue care with PCP -Patient understands importance of good blood s ugar control -RTC in 1 year for CEE sooner PRN 2. Combined cataracts OU -not visually significant at this time -continue to monitor at yearly CEE 3. Regular astigmatism with presbyopia OU -new glasses ordered today -RTC in 1 year for CEE sooner PRN. Plan: RTC in 1 year for CEE or sooner PRN Patient Education: Diabetes: Patient was educated regarding diabetes and rela brianna ocular complications including retinopathy and cataract formation as well as other related systemic complications. The importance of good blood sugar control, bloo d sugar testing as recommended by their PCP and the importance o f timely follow up were all emphasized. /yee/ ROSANNE VALENCIA OPTOMETRY STUDENT Signed: 07/05/2022 12:43 /yee/ TRIP DHALIWAL OD Wool Washer Feeder Cosigned: 07/05/2022 13:10 07/05/2022 ADDENDUM STATUS: COMPLETED The optometry fall internship participated in this exam, I saw this [place] in conjunction with the optometry student. The entr ance tests and refraction were performed by the student and reviewed by me . I personally met with the patient, confirmed the hisory, complaints and th e student's findings, and performed slit lamp and fundus evaluation as ind icated. I reviewed and agree with the stated findings, assessment and plan. I have added/edited the documentation to reflect my exam findings and ad gilbert to the assessment and plan. Medication Reconciliation: Outpatient: Has the patient been taking medications as docu mented in the EMLR? YES: The patient has been taking medications as documented in the EMLR. Essential Medication List for Review used to co mplete this medication reconciliation. INCLUDED IN THIS LIST: Alphabetical list of act fernando outpatient prescriptions dispensed from this VA (local) an d dispensed from another VA or DoD facility (remote) as well as inpatien t orders (local, pending and active), local clinic medications, locally documented non-VA medications, and local prescriptions that have or been discontinued in the past 90 days. - All changes in medications, including all non -VA/Herbal/OTC medications were entered into CPRS. - If there were any medications the patient chidi uld no longer take, they were discontinued. - The patient/caregiver was instructed to updat e this list, discard old lists, and take this list to the next appointme nt, whether with a VA or non-VA provider. Diabetic Eye Exam: The patient has had a dilated funduscopic exam of the retina, or has been screened by digital retinal imaging within the past 24 months by an reed or wind instrument tuner or general counselor. Results: The results of a recent DM digital retinal or D M dilated funduscopic eye exam indicated no retinopathy found. Repeat DM eye exam in 2 years. Date: July 05, 2022 /yee/ TRIP DHALIWAL OD Wool Washer Feeder Signed: 07/05/2022 13:11
--- OUTSIDE RECORDS SUMMARY | 2022-11-24 16:20 | XMS_ITS ---
:1960 Author Organization Department [facility] rs Address [address] [place] [id number] Support Name Relationship Address Phone DIMPLESUNNY Unavailable [address] [place] [address] SUNNY MUSA Unavailable [address] [place] [address] Insurance Providers: All historical and current Section [...] MEDICARE MEDICARE PART Jul 20, PART B [id number] Gail QUINTANILLA PATIENT (WNR) (M) B 2009A 4 ERARD MEDICARE MEDICARE PART Jul 20, PART A [id number] Gail QUINTANILLA PATIENT (WNR) (M) A 2009A 4 ERARD MEDICARE MEDICARE PART Jul 20, PART A [id number] [id number] Gail QUINTANILLA PATIENT (WNR) (M) A 2009A ER[place] MEDICARE MEDICARE PART Jul 20, PART B [id number] [id number] Gail QUINTANILLA PATIENT (WNR) (M) B 2009A ERARD Selected Encounter This section includes the information on record at [place] for the Encounter. Date/Time Encounter Type Encounter Description Reason Provider Source Jun 27, 2022 03:29 Outpatient Encounter ADMIN PAT ACTIVTIES PM (MASNONCT) IHE Encounter Template Text not used by [place] Plan of Treatment: Future Appointments (+ 6 months) and Future Tests (+/- 45 days) The Plan of Treatment section includes future care activities for the patient from all [place] [facility] This section includes future appointments and future orders which are active, pending orscheduled.Future Appointments This section includes appointments that were scheduled to occur 6 months from the date of the Encounter, up to a maximum of 20 appointments. The data comes from all [place] treatment facilities. Appointment Date/Time Appointment Type Appointment Facili ty Name Jul 05, 2022 11:00 AM [facility] Jul 06, 2022 12:00 PM [facility] Advance Directives: All historical and current Section Date Range: From patient's date of to the date document was created. This section includes ALL of a patient's completed or amended [place] Advance and Rescinded Directives. The entries below indicate that a directive exists for the patient, but an actual copy is not included with this document. The data comes from all [place] facilities. Date Advance Directives Provider Source Jul 06, 2009 ADVANCE DIRECTIVE KEESHA JONES [place] Encounter Notes: All associated encounter notes This section contains the clinical notes associated to the Encounter. Date/Time Encounter Note(s) Provider Source Jun 27, 2022 03:29 PM ADMINISTRATIVE NOTE: DEDE MONSON [facility] TITLE: CCC: SCHEDULING ADMINISTRATION [facility] STANDARD TITLE: ADMINISTRATIVE NOTE DATE OF NOTE: JUN 27, 2022@15:29:40 ENTRY DATE: JUN 27, 2022@15:31:55 AUTHOR: DEDE MONSON EXP COSIGNER: URGENCY: STATUS: COMPLETED CCC: SCHEDULING ADMINISTRATION Has ADDENDA Type of call: ADMINISTRATIVE. PCMM Provider Info: [facility] ([id number]) PACT: SO PACT 10 (Focus: Primary Care Only) Primary Care Provider: IAIN MAURICIO Employee Relations Manager: QUINTON MARINO PHONE:[phone] Clinical Associate: BAM SPIVEY PHONE: [phone] Office Receptionist: ARLEEN SMITH PHONE :[phone] PACT Clinical Pharmacist: KYMBERLY BURGESS Clinical POC: Administrative POC: Office Receptionist ARLEEN SMITH PHONE:[phone] *PATIENT called in for GENNA CONDE ANNIE ([id number]) . The following identifiers were used to verify th is patient: DOB. KELLEYN. Contact Caller Response: ADM CALL RESOLVED Caller Area: [facility] Comments: Please return call to [place] RE: Update for the Ozempic pen- from O/S provider demographics updated/ dw Author: DEDE MONSON Evaluation/Management Code: HC PRO PHONE CALL 5- 10 MIN ([id number]). Starting at: 06/27/2022 @ 3:29:40 PM Ending at: 06/27/2022 @ 3:31:44 PM Length: 2 minutes. Chief Complaint: Not applicable to call. Class Code: Other specified counseling. /ashley MONSON CDA/CHEYENNE Signed: 06/27/2022 15:31 Receipt Acknowledged By: 06/28/2022 09:50 /GINA Carlson-maintenance mechanic helper Nurse for QUINTON MARINO 06/28/2022 ADDENDUM STATUS: COMPLETED Called . No answer. LVM /yee/ GINA GALLEGOS-maintenance mechanic helper Nurse Signed: 06/28/2022 09:50 06/28/2022 ADDENDUM STATUS: COMPLETED returning your call, call dropped before service writer advisor could transfer /yee/ [facility]GE ROTH [facility] AMSKatie Signed: 06/28/2022 11:57 Receipt Acknowledged By: 06/28/2022 12:00 /GINA Carlson-maintenance mechanic helper Nurse 06/28/2022 ADDENDUM STATUS: COMPLETED Spoke with vet via tele. Advised we don' t have RX at this time. Advised vetean to bring in a paper copy. /GINA Carlson-maintenance mechanic helper Nurse Signed: 06/28/2022 12:01
--- OUTSIDE RECORDS SUMMARY | 2022-11-24 16:21 | XMS_ITS ---
:1960 Author Organization Department [facility] rs Address [address] [place] [address] Support Name Relationship Address Phone DIMPLESUNNY Unavailable [address] [place] [address] SUNNY MUSA Unavailable [address] [place] [address] Insurance Providers: All historical and current Section [...] MEDICARE MEDICARE PART Jul 20, PART A [id number] Gail QUINTANILLA PATIENT (WNR) (M) A 2009A 4 ERARD MEDICARE MEDICARE PART Jul 20, PART B [id number] Gail QUINTANILLA PATIENT (WNR) (M) B 2009A ERARD MEDICARE MEDICARE PART Jul 20, PART A [id number] [phone] Gail QUINTANILLA PATIENT (WNR) (M) A 2009A ERARD MEDICARE MEDICARE PART Jul 20, PART B [id number] [phone] Gail QUINTANILLA PATIENT (WNR) (M) B 2009A ERARD Selected Encounter This section includes the information on record at [place] for the Encounter. Date/Time Encounter Type Encounter Description Reason Provider Source Jul 05, 2022 12:00 Outpatient Encounter EVENT (HISTORICAL) AM IHE Encounter Template Text not used by VA Plan of Treatment: Future Appointments (+ 6 months) and Future Tests (+/- 45 days) The Plan of Treatment section includes future care activities for the patient from all [place] treatmentfacilities. This section includes future appointments and future orders which are active, pending orscheduled.Future Appointments This section includes appointments that were scheduled to occur 6 months from the date of the Encounter, up to a maximum of 20 appointments. The data comes from all [place] treatment facilities. Appointment Date/Time Appointment Type Appointment Facili ty Name Jul 06, 2022 12:00 PM AM[place]ULATORY - [place]ICINE [place] [facility] Advance Directives: All historical and current Section Date Range: From patient's date of to the date document was created. This section includes ALL of a patient's completed or amended [place] Advance and Rescinded Directives. The entries below indicate that a directive exists for the patient, but an actual copy is not included with this document. The data comes from all [place] facilities. Date Advance Directives Provider Source Jul 06, 2009 ADVANCE DIRECTIVE KEESHA JONES
--- OUTSIDE RECORDS SUMMARY | 2022-11-24 16:21 | XMS_ITS | Encounter Summary ---
:1960 Author Organization Department [facility] rs Address [address] [place] [address] Support Name Relationship Address Phone DIMPLESUNNY Unavailable [address] [place] [address] SUNNY MUSA Unavailable [address] [place] [place] [address] Insurance Providers: All historical and current Section [...] MEDICARE MEDICARE PART Jul 20, PART A [id number] Gail QUINTANILLA PATIENT (WNR) (M) A 2009A 4 ERARD MEDICARE MEDICARE PART Jul 20, PART B [id number] Gail QUINTANILLA PATIENT (WNR) (M) B 2009A 4 ERARD MEDICARE MEDICARE PART Jul 20, PART A [id number] [phone] Gail QUINTANILLA PATIENT (WNR) (M) A 2009A 00 ERARD MEDICARE MEDICARE PART Sep , PART B [id number] [phone] Gail QUINTANILLA PATIENT (WNR) (M) B 2009A ERARD Selected Encounter This section includes the information on record at [place] for the Encounter. Date/Time Encounter Type Encounter Description Reason Provider Source Jul 10, 2022 02:12 Outpatient Encounter PRIMARY CARE/MEDICINE PM IHE Encounter [...] Encounter. Date/Time Encounter Note(s) Provider Source Jul 10, 2022 02:12 PM ENDOCRINOLOGY NOTE: QUINTON MARINO LOCAL TITLE: ENDOCRINOLOGY PROGRESS NOTE STANDARD TITLE: ENDOCRINOLOGY NOTE DATE OF NOTE: JUL 10, 2022@14:12 ENTRY DATE: JUL 10, 2022@14:12:36 AUTHOR: QUINTON MARINO EXP COSIGNER: URGENCY: STATUS: COMPLETED Endocrinology, Dr. Rojas OV 06/15/22 CHIEF COMPLAINT: Medication IDENTIFIER: Genna Musa is a 62 yr. old Mal e. Patient advised not to come to the office due to COVID-19 risk. His health condition(s) warranted a virtual audio visit radha t will be submitted to his insurance. Patient understands that this visit w as in place of an in person visit, understands the risks of communicating on line and consents. This visit was conducted with the use of an inte ractive system that permits real time communication between the patient and provider. Patient consent for a virtual audio visit was obtained on . The total length time of this visit was 20 minutes for evaluation, chart/consults/test review, and documentation to day. Originating Site: providers office Distant Site: patients home Additional individuals participating in remote v isit: self HPI: Patient is a 62-year-old man who agrees to an [facility] healthcare visit today to discuss about starting Ozempic. He has a history of donor liver transplant for cirrhosis secondary to hepatitis C. He [facility] up [facility]. He does have a history of diabetes and is curren tly on glipizide 5 mg twice a day. His last A1c was 6.0. He was recommended to switching to Ozempic by his transplant/bundle clerk center which is he lping with his fatty liver. 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 ROS: GENERAL: No malaise, significant weight loss or fever HEENT: No changes in hearing or vision, nose ble eds or other nasal problems RESPIRATORY: No cough, wheezing or shortness of breath CARDIOVASCULAR: No chest pain, leg swelling or p alpitations GI: No abdominal discomfort, blood in stools or black stools NECK: No lumps, goiter, pain or significant neck swelling : No dysuria, frequency or incontinence MUSCULOSKELETAL: No joint pain or swelling, back pain, or muscle pain. SKIN: No lesions, rash or itching ALPHONSE RO: No persistent headache, syncope, seizure s, weakness or numbness GI, liver center (06/12/18): We'll continue tacro limus at current doses. His abnormal LFTs likely reflect Solorzano. He wi ll continue phlebotomies with the goal of ferritin less than 150. He has osteopenia for which she is on calcium and vitamin D. His last colonoscopy was in 2010, he has no polyps, follow-up in 2020. GI/Liver center (05/09): hep c cured but solorzano per sists. cont tacrolimus [facility] (07/13/17): Liver biopsy showed severe, predominantly fatty change in the liver, compris ing greater than 66% of the core biopsy with. There is mild inflamma tion. This no rejection seen. There is scar tissue best quantified as stage II out of 4 were O normal and for cirrhosis Hepatorenal syndrome with chronic hep C 09/[address] [facility] [address]. Darshan Zapata/Dr. Milena Gracia Hep C positive in past (needlestick as FAMILY AND DIVORCE LEGAL ASSISTANT), neg ative since 2009 ASSESMENT/ PLAN: I went over how Ozempic is administered. We will send in a prescription for Ozempic 0.5 mg/week. Have gone ahead and reduce his glipizide dose to 2.5 mg twice a day to avoid hypoglycemia as his A 1 c i s well controlled. He will follow-up with the bundle clerk at the [facility]. Robbie Ferguson MD on 06/15/2022 at 12:01 PM 08/01/2021 LABS WBC 6.0 RBC 4.8 HGB 14.0 HCT 40.2L MCV 84.5 MCH 29.4 MCHC 34.6 PLT 167 MPV 10.1 GLU 159H BUN 19 CREAT 106 GFR >60 ALB 4.1 BILI 0.7 AST 30 ALT 63H CHOL 178 TRIG 136 HDL 38L A1C 6.0 (01/18/22) /yee/ QUINTON MARINO, SUPERVISOR WATERPROOFING NURSE Signed: 07/10/2022 14:21
--- OUTSIDE RECORDS SUMMARY | 2022-11-24 16:21 | XMS_ITS | Encounter Summary ---
:1960 Author Organization [facility] Address [address] [place] [address] Support Name Relationship Address Phone DIMPLESUNNY Unavailable [address] [place] [address] SUNNY MUSA Unavailable [address] [place] [address] Insurance Providers: All historical and current Section [...] MEDICARE MEDICARE PART Jul 20, PART A [id number] Gail QUINTANILLA PATIENT (WNR) (M) A 2009 ERARD MEDICARE MEDICARE PART Jul 20, PART B [id number] Gail QUINTANILLA PATIENT (WNR) (M) B 2009A ERARD MEDICARE MEDICARE PART Jul 20, PART A [id number] Gail QUINTANILLA PATIENT (WNR) (M) A 2009A ERARD MEDICARE MEDICARE PART Jul 20, PART B [id number] [phone] Gail QUINTANILLA PATIENT (WNR) (M) B 2009 ERARD Selected Encounter This section includes the information on record at [place] for the Encounter. Date/Time Encounter Type Encounter Description Reason Provider Source Jul 05, 2022 04:22 Outpatient Encounter OPTOMETRY PM IHE Encounter Template Text not used by VA Plan of Treatment: Future Appointments (+ 6 months) and Future Tests (+/- 45 days) The Plan of Treatment section includes future care activities for the patient from all [place] treatmentfacilities. This section includes future appointments and future orders which are active, pending orscheduled.Future Appointments This section includes appointments that were scheduled to occur 6 months from the date of the Encounter, up to a maximum of 20 appointments. The data comes from all [place] treatment facilities. Appointment Date/Time Appointment Type Appointment Facili ty Name Jul 06, 2022 12:00 PM AMBULATORY - [facility] Advance Directives: All historical and current Section Date Range: From patient's date of to the date document was created. This section includes ALL of a patient's completed or amended [place] Advance and Rescinded Directives. The entries below indicate that a directive exists for the patient, but an actual copy is not included with this document. The data comes from all [place] facilities. Date Advance Directives Provider Source Jul 06, 2009 ADVANCE DIRECTIVE KEESHA JONES [place] Encounter Notes: All associated encounter notes This section contains the clinical notes associated to the Encounter. Date/Time Encounter Note(s) Provider Source Jul 05, 2022 04:22 PM OPTOMETRY NOTE: MARYCHUY SANABRIA [facility] LOCAL TITLE: OPTOMETRY NOTE [facility] STANDARD TITLE: OPTOMETRY NOTE DATE OF NOTE: JUL 05, 2022@16:22 ENTRY DATE: JUL 05, 2022@16:22:33 AUTHOR: MARYCHUY SANABRIA EXP COSIGNER: URGENCY: STATUS: COMPLETED g tori gibson GENNA VALENCIA DIMPLE 8073 RX INFORMATION OD -0.50 -2.50 X92 Add:+2.50 Pzm:0.00 Dir: Prz2: 0.00 Dir2: OS 0.00 -1.75 X80 Add:+2.50 Pzm:0.00 Dir: Prz2:0 .00 Dir2: FITTING INFORMATION FPD: NPD: [place]:R:31.5 L:33.5 SEG HT:R:18 L:19 Tint:MAY Shade:3 VA Billable Items FRAME: FX30 GUNMETAL 54-18-140 Right Lens: POLY VA PROGRESSIVE 1.586 POLY Left Lens: POLY VA PROGRESSIVE 1.586 POLY SOLID TINT prog clear GENNA MUSA 8073 RX INFORMATION OD -0.50 -2.50 X92 Add:+2.50 Pzm:0.00 Dir: Prz2: 0.00 Dir2: OS 0.00 -1.75 X80 Add:+2.50 Pzm:0.00 Dir: Prz2:0 .00 Dir2: FITTING INFORMATION FPD: NPD: [place]:R:31.5 L:33.5 SEG HT:R:18 L:19 Tint:None Shade:None VA Billable Items FRAME: FX30 GUNMETAL 54-18-140 Right Lens: POLY VA PROGRESSIVE 1.586 POLY Left Lens: POLY VA PROGRESSIVE 1.586 POLY /yee/ MARYCHUY SANABRIA PROFILING MACHINE SETUP OPERATOR Signed: 07/05/2022 16:23 Receipt Acknowledged By: * AWAITING SIGNATURE * ANNABEL TOLEDO * AWAITING SIGNATURE * FLOR KIDD
--- OUTSIDE RECORDS SUMMARY | 2022-11-24 16:21 | XMS_ITS | Encounter Summary ---
:1960 Author Organization [facility] rs Address [address] [place] [address] Support Name Relationship Address Phone DIMPLESUNNY Unavailable [address] [place] [address] SUNNY MUSA Unavailable [address] [place] [address] Insurance Providers: All historical and current Section [...] MEDICARE MEDICARE PART Jul 20, PART A [id number] Gail QUINTANILLA PATIENT (WNR) (M) A 2009A 4 ERARD MEDICARE MEDICARE PART Jul 20, PART B [id number] Gail QUINTANILLA PATIENT (WNR) (M) B 2009A 4 ERARD MEDICARE MEDICARE PART Jul 20, PART A [id number] [id number] Gail QUINTANILLA PATIENT (WNR) (M) A 2009A 00 ERARD MEDICARE MEDICARE PART Sep , PART B [id number] [id number] Gail QUINTANILLA PATIENT (WNR) (M) B 2009A ERARD Selected Encounter This section includes the information on record at [place] for the Encounter. Date/Time Encounter Type Encounter Reason Provider Source Description Jul 11, 2022 [facility] ICD-10-CM E11.9 [place]OR[place]IA CRUZ IST 11:43 AM ASSMT&MGMT Type 2 diabetes IE J 11-20 mellitus without complications with Provider Comments: Type 2 diabetes mellitus (SCT [id number]) IHE Encounter Template Text not used by VA Assessments - Encounter Diagnoses This section includes the primary and secondary diagnoses documented for the Encounter. Date/Time Primary/Secondary Diagnosis Name Provider Source Diagnosis Jul 11, 2022 PRIMARY Type 2 diabetes RUI CRUZ [facility] 11:54 AM mellitus without E J complications Advance Directives: All historical and current Section Date Range: From patient's date of to the date document was created. This section includes ALL of a patient's completed or amended VA Advance and Rescinded Directives. The entries below indicate that a directive exists for the patient, but an actual copy is not included with this document. The data comes from all [place] facilities. Date Advance Directives Provider Source Jul 06, 2009 ADVANCE DIRECTIVE KARENKEESHA LOZANO D [place] Encounter Notes: All associated encounter notes This section contains the clinical notes associated to the Encounter. Date/Time Encounter Note(s) Provider Source Jul 11, 2022 11:43 AM PHARMACY CONSULT: MEGAN CRUZ [facility] LOCAL TITLE: CONSULT REPORT/PRIOR AUTH FACILITY PADR STANDARD TITLE: PHARMACY CONSULT DATE OF NOTE: JUL 11, 2022@11:43 ENTRY DATE: JUL 11, 2022@11:43:20 AUTHOR: MEGAN CRUZ EXP COSIGNER: URGENCY: STATUS: COMPLETED The medical record has been reviewed with regard to this restricted drug request. Medication requested: SEMAGLUTIDE 0.5MG/0.375ML INJ PEN 1.5ML Medication indication: DM II and OCHOA Medical history relevant to this request: Pt is following with several nonVA specialists. He has been using semaglutide, nonVA, for management of both NAFL D and DM. Per notes, last A1c was 6% 01/2022 - updated A1c is due. Glipizi de dose is being reduced as intent is to replace with semaglutide. Per review of chart, pt is without ASCVD/CKD. Semaglutide is restricted to the following in t hose WITHOUT ASCVD and/or Chronic Kidney Disease [X] Type 2 diabetes AND ONE of the following: [ ] Inadequate glycemic control on two or more oral medications, one of which should be metformin, unless unable to use [ ] Inadequate glycemic control on basal insuli n, titrated as feasible, to an acceptable fasting blood glucose level, p david one or more oral medications, one of which should be metformin, unless unable to use Will ask for consideration to be given to formu nabor agents for DM management with benefit also seen in NAFLD: reginald glitazone and/or empagliflozin. Please resubmit request if there are contraindications to these agents. The request does not meet criteria - The preferred alternative therapeutic option( s) have not been exhausted - please see above /yee/ Megan Cruz PharmD, BCPS Clinical Product Handler Signed: 07/11/2022 11:54
--- OUTSIDE RECORDS SUMMARY | 2022-11-24 16:21 | XMS_ITS | Encounter Summary ---
:1960 Author Organization [facility] Address [address] [place] [address] Support Name Relationship Address Phone DIMPLESUNNY BRADLEY Unavailable [address] [place] [address] SUNNY MUSA Unavailable [address] [place] [address] Insurance Providers: All historical and current Section [...] MEDICARE MEDICARE PART Jul 20, PART A [id number] Gail QUINTANILLA PATIENT (WNR) (M) A 2009A ERARD MEDICARE MEDICARE PART Jul 20, PART B [id number] Gail QUINTANILLA PATIENT (WNR) (M) B 2009A ERARD MEDICARE MEDICARE PART Jul 20, PART A [id number] [phone] Gail QUINTANILLA PATIENT (WNR) (M) A 2009A ERARD MEDICARE MEDICARE PART Jul 20, PART B [id number] [id number] Gail QUINTANILLA PATIENT (WNR) (M) B 2009 ERARD Selected Encounter This section includes the information on record at [place] for the Encounter. Date/Time Encounter Type Encounter Reason Provider Source Description Jul 06, 2022 FIT SPECTACLES OPTOMETRY ICD-10-CM Z46.0 ZULY KIDD 12:00 PM MULTIFOCAL Encounter for A SUNNY fit/adjst of spectacles and contact lenses with Provider Comments: Encounter for Fitting and Adjustment of Spectacles and Contact Lenses IHE Encounter Template Text not used by VA Assessments - Encounter Diagnoses This section includes the primary and secondary diagnoses documented for the Encounter. Date/Time Primary/Secondary Diagnosis Name Provider Source Diagnosis Jul 06, 2022 PRIMARY Encounter for FLOR KIDD IN CNTRL WS TRN 07:58 AM fit/adjst of SUNNY [facility] spectacles and contact lenses Advance Directives: All historical and current Section Date Range: From patient's date of to the date document was created. This section includes ALL of a patient's completed or amended [place] Advance and Rescinded Directives. The entries below indicate that a directive exists for the patient, but an actual copy is not included with this document. The data comes from all [place] facilities. Date Advance Directives Provider Source Jul 06, 2009 ADVANCE DIRECTIVE KEESHA JONES [place] Encounter Notes: All associated encounter notes This section contains the clinical notes associated to the Encounter. Date/Time Encounter Note(s) Provider Source Jul 06, 2022 07:58 AM OPTOMETRY NOTE: FLOR KIDD IN CNTRL W STRN LOCAL TITLE: OPTOMETRY NOTE SUNNY RENUKA [facility] STANDARD TITLE: OPTOMETRY NOTE DATE OF NOTE: JUL 06, 2022@07:58 ENTRY DATE: JUL 06, 2022@07:58:30 AUTHOR: FLOR KIDD EXP COSIGNER: URGENCY: STATUS: COMPLETED PDSC Pipe Bender fit patient with 2 pair of PAL eye glasses. Ordered as requested. /yee/ Flor Kidd Optometry Health Leather Coverer Signed: 07/06/2022 07:58
--- OUTSIDE RECORDS SUMMARY | 2022-11-24 16:22 | XMS_ITS ---
:1960 Author Organization Department [facility] rs Address [address] [place] [address] Support Name Relationship Address Phone DIMPLESUNNY Unavailable [address] [place] [address] SUNNY MUSA Unavailable [address] [place] [address] Insurance Providers: All historical and current Section [...] MEDICARE MEDICARE PART Jul 20, PART A [id number] Gail QUINTANILLA PATIENT (WNR) (M) A 2009A 4 ERARD MEDICARE MEDICARE PART Jul 20, PART B [id number] Gail QUINTANILLA PATIENT (WNR) (M) B 2009A 4 ERARD MEDICARE MEDICARE PART Jul 20, PART A [id number] [id number] Gail QUINTANILLA PATIENT (WNR) (M) A 2009A 00 ERARD MEDICARE MEDICARE PART Jul 20, PART B [id number] [phone] Gail QUINTANILLA PATIENT (WNR) (M) B 2009A ERARD Selected Encounter This section includes the information on record at [place] for the Encounter. Date/Time Encounter Type Encounter Description Reason Provider Source Jul 31, 2022 11:30 Outpatient Encounter ADMIN PAT ACTIVTIES AM (MASNONCT) IHE Encounter Template Text not used [...] this document. The data comes from all [place] facilities. Date Advance Directives Provider Source Jul 06, 2009 ADVANCE DIRECTIVE KEESHA JONES [place] Encounter Notes: All associated encounter notes This section contains the clinical notes associated to the Encounter. Date/Time Encounter Note(s) Provider Source Jul 31, 2022 11:30 AM ADMINISTRATIVE NOTE: VIVEK RUSS [place] [facility] LOCAL TITLE: CCC: SCHEDULING ADMINISTRATION [place] [facility] STANDARD TITLE: ADMINISTRATIVE NOTE DATE OF NOTE: JUL 31, 2022@11:30:13 ENTRY DATE: JUL 31, 2022@11:35:24 AUTHOR: VIVEK RUSS EXP COSIGNER: URGENCY: STATUS: COMPLETED CCC: SCHEDULING ADMINISTRATION Has ADDENDA Type of call: PHARMACY. PCMM Provider Info: [facility] ([id number]) PACT: SO PACT 10 (Focus: Primary Care Only) Primary Care Provider: IAIN MAURICIO Computerized Mill Mill Recorder: QUINTON MARINO PHONE:[phone] Clinical Associate: BAM SPIVEY PHONE: [phone] Specialist: ARLEEN SMITH PHONE :[phone] PACT Clinical Pharmacist: KYMBERLY BUGRESS Clinical POC: Administrative POC: Court Specialist ARLEEN SMITH PHONE:[phone] *PATIENT called in for GENNA CONDE ([id number]) . The following identifiers were used to verify th is patient: SSN. Contact Caller Response: ADM CALL RESOLVED Caller Area: [facility] [facility] Comments: [place] called requesting a call back to discuss a a medication for Semaglutide that would have been sent over from PCP out in the community. This information was Faxed over about a month ago. Please call to discuss further Author: VIVEK RUSS Evaluation/Management Code: HC PRO PHONE CALL 5- 10 MIN ([phone]). Starting at: 07/31/2022 @ 11:30:13 AM Ending at: 07/31/2022 @ 11:35:01 AM Length: 4 minutes. Chief Complaint: Not applicable to call. Class Code: Other specified counseling. /yee/ VIVEK Willsonn1 [facility] Signed: 07/31/2022 11:35 Receipt Acknowledged By: 08/01/2022 15:23 /yee/ QUINTON MARINO EQUINE MANAGER NURSE * AWAITING SIGNATURE * BAM SPIVEY 08/01/2022 ADDENDUM STATUS: COMPLETED I called the . I left him a VM on 07/18 but he tells me he did not get it. The request for Ozempic was denied. Per pharm suggest to ask for consideration to be given to formulary agents for DM management with benefit also seen in NAFLD: reginald glitazone and/or empagliflozin he will check with his Computer Science Intern and if in ag reement get a RX /yee/ QUINTON MARINO, EQUINE MANAGER NURSE Signed: 08/01/2022 15:25
--- OUTSIDE RECORDS SUMMARY | 2022-11-24 16:22 | XMS_ITS | Encounter Summary ---
:1960 Author Organization Department [facility] rs Address [address] [place] [address] Support Name Relationship Address Phone DIMPLESUNNY Unavailable [address] [place] [address] DIMPLESUNNY BRADLEY Unavailable [address] [place] [address] Insurance Providers: All historical and current Section [...] MEDICARE MEDICARE PART Jul 20, PART A [id number] Gail QUINTANILLA PATIENT (WNR) (M) A 2009A 4 ERARD MEDICARE MEDICARE PART Jul 20, PART B [id number] Gail QUINTANILLA PATIENT (WNR) (M) B 2009A ERARD MEDICARE MEDICARE PART Jul 20, PART A [id number] [phone] Gail QUINTANILLA PATIENT (WNR) (M) A 2009A ERARD MEDICARE MEDICARE PART Jul 20, PART B [id number] [phone] Gail QUINTANILLA PATIENT (WNR) (M) B 2009A ERARD Selected Encounter This section includes the information on record at [place] for the Encounter. Date/Time Encounter Type Encounter Description Reason Provider Source Jun 15, 2022 12:00 Outpatient Encounter EVENT (HISTORICAL) AM IHE Encounter Template Text not used by VA Plan of Treatment: Future Appointments (+ 6 months) and Future Tests (+/- 45 days) The Plan of Treatment section includes future care activities for the patient from all [place] treatmentfacilities. This section includes future appointments and future orders which are active, pending orscheduled.Future Appointments This section includes appointments that were scheduled to occur 6 months from the date of the Encounter, up to a maximum of 20 appointments. The data comes from all [place] treatment facilities. Appointment Date/Time Appointment Type Appointment Facili ty Name Jul 05, 2022 11:00 AM AMBULATORY [facility] Jul 06, 2022 12:00 PM [facility] Advance Directives: All historical and current Section Date Range: From patient's date of to the date document was created. This section includes ALL of a patient's completed or amended [place] Advance and Rescinded Directives. The entries below indicate that a directive exists for the patient, but an actual copy is not included with this document. The data comes from all [place] facilities. Date Advance Directives Provider Source Jul 06, 2009 ADVANCE DIRECTIVE KEESHA JONES [place] Encounter Notes: All associated encounter notes This section contains the clinical notes associated to the Encounter. Date/Time Encounter Note(s) Provider Source Jun 15, 2022 12:00 AM NONVA NOTE: [facility] LOCAL TITLE: NON-VA OUTPATIENT NOTES [facility] STANDARD TITLE: NONVA NOTE DATE OF NOTE: JUN 15, 2022 ENTRY DATE: AUG 02 022@10:07:29 AUTHOR: JOHN CAMPBELL COSIGNER: URGENCY: STATUS: COMPLETED VistA Imaging - Scanned Document SCANNED DOCUMENT SIGNATURE NOT REQUIRED Electronically Filed: 08/02/2022 by: JOHN CAMPBELL SPECIAL EVENTS MANAGER
--- OUTSIDE RECORDS SUMMARY | 2022-11-24 16:22 | XMS_ITS | Encounter Summary ---
:1960 Author Organization Department [facility] rs Address [address] [place] [address] Support Name Relationship Address Phone DIMPLESUNNY Unavailable [address] [place] [address] SUNNY MUSA Unavailable [address] [place] [address] Insurance Providers: All historical and current Section [...] MEDICARE MEDICARE PART Jul 20, PART A [id number] Gail QUINTANILLA PATIENT (WNR) (M) A 2009A 4 ERARD MEDICARE MEDICARE PART Jul 20, PART B [id number] Gail QUINTANILLA PATIENT (WNR) (M) B 2009A 4 ERARD MEDICARE MEDICARE PART Jul 20, PART A [id number] [phone] Gail QUINTANILLA PATIENT (WNR) (M) A 2009A 00 ERARD MEDICARE MEDICARE PART Jul 20, PART B [id number] [id number] Gail QUINTANILLA PATIENT (WNR) (M) B 2009A ERARD Selected Encounter This section includes the information on record at [place] for the Encounter. Date/Time Encounter Type Encounter Description Reason Provider Source Oct 24, 2022 01:50 Outpatient Encounter PRIMARY CARE/MEDICINE PM IHE Encounter [...] this document. The data comes from all [place] facilities. Date Advance Directives Provider Source Jul 06, 2009 ADVANCE DIRECTIVE KEESHA JONES Encounter Notes: All associated encounter notes This section contains the clinical notes associated to the Encounter. Date/Time Encounter Note(s) Provider Source Oct 24, 2022 01:50 PM PRIMARY CARE NOTE: BISI ESTEVEZ [facility] TITLE: WALK-IN NOTE PRIMARY CARE (T) STANDARD TITLE: PRIMARY CARE NOTE DATE OF NOTE: OCT 24, 2022@13:50 ENTRY DATE: OCT 24, 2022@13:51:02 AUTHOR: BISI ESTEVEZ EXP COSIGNER: URGENCY: STATUS: COMPLETED WALK-IN NOTE PRIMARY CARE (T) Has ADDENDA * <====Click to Start Advanced Medical Support presents to the Primary Care clinic with the following request: [ ]Medication Renewal/Refill [ ]Consultation with Team RN [ ]Symptoms [ X ]Other OUTSIDE RX The states they are: [ ]Waiting [ X ]Not Waiting No Walk in visit scheduled with PACT Nurse [ X ] At this encounter the [place]'s demographi cs were verified. [ X ] At this encounter the [place] Insurance information was verified. [ X ] At this encounter the below scheduled visi ts for the were discussed and appointment reminder card wa s offered. Future appointments: 07/09/2023 09:30 CWM/NO/OPT JOSTIN/MADHURI presents to clinic with RX from [facility] for Fluticasone-Salmeterol - he states he has not started this medication yet but would like to get it filled as soon as possible and would like a call so he knows to come pick it up at pharmacy - RX placed in providers mailbox /yee/ BISI ESTEVEZ ADVANCED MEDICAL SUPPOET WAISTLINE JOINER OVERLOCK Signed: 10/24/2022 13:53 Receipt Acknowledged By: 10/25/2022 12:20 /es/ BAM SPIVEY LPN PACT 10 10/26/2022 16:24 /es/ QUINTON MARINO RN STAFF NURSE 10/26/2022 ADDENDUM STATUS: COMPLETED RX is for Advair, given to PCP. Please advsie if you will order Wixela as a substitute and I will inform the [place], thank you. /ashley MARINO RN STAFF NURSE Signed: 10/26/2022 09:24 Receipt Acknowledged By: 10/26/2022 16:05 /yee/ IAIN MAURICIO MD Primary Care Physician 10/26/2022 ADDENDUM STATUS: COMPLETED Rx for Wixella 250-50 prescribed for Power Efficiency orange picker machine operator as a substitute for Advair HFLA 230-21. Please inform . Thank you /yee/ IAIN MAURICIO MD Primary Care Physician Signed: 10/26/2022 16:06 Receipt Acknowledged By: 10/26/2022 16:24 /yee/ QUINTON MARINO RN STAFF NURSE 10/26/2022 ADDENDUM STATUS: COMPLETED I called and s/w the [place] - he is aware Wixella was order in place of Advair. He currently has a cough and round out that his 2 grandkids have RSV and he has been around them so likely R SV for him -he will come to the clinic tomorrow and ask for signwriter and I will get his RX fro pharmacy and bring it to him outside /yee/ QUINTON MARINO RN STAFF NURSE Signed: 10/26/2022 16:23
--- OUTSIDE RECORDS SUMMARY | 2022-11-24 16:22 | XMS_ITS | Encounter Summary ---
:1960 Author Organization [facility] Address [address] [place] [address] Support Name Relationship Address Phone DIMPLESUNNY Unavailable [address] [place] [address] SUNNY MUSA Unavailable [address] [place] [address] Insurance Providers: All historical and current Section [...] MEDICARE MEDICARE PART Jul 20, PART A [id number] Gail QUINTANILLA PATIENT (WNR) (M) A 2009A 4 ERARD MEDICARE MEDICARE PART Jul 20, PART B [id number] Gail QUINTANILLA PATIENT (WNR) (M) B 2009A ERARD MEDICARE MEDICARE PART Jul 20, PART A [id number] [id number] Gail QUINTANILLA PATIENT (WNR) (M) A 2009A ERARD MEDICARE MEDICARE PART Jul 20, PART B [id number] [phone] Gail QUINTANILLA PATIENT (WNR) (M) B 2009A ERARD Selected Encounter This section includes the information on record at [place] for the Encounter. Date/Time Encounter Type Encounter Description Reason Provider Source Jul 28, 2022 03:28 Outpatient Encounter OPTOMETRY PM IHE Encounter Template Text not used by VA Advance Directives: All historical and current Section Date Range: From patient's date of to the date document was created. This section includes ALL of a patient's completed or amended [place] Advance and Rescinded Directives. The entries below indicate that a directive exists for the patient, but an actual copy is not included with this document. The data comes from all [place] facilities. Date Advance Directives Provider Source Jul 06, 2009 ADVANCE DIRECTIVE KEESHA JONES [place] Encounter Notes: All associated encounter notes This section contains the clinical notes associated to the Encounter. Date/Time Encounter Note(s) Provider Source Jul 28, 2022 03:28 PM OPTOMETRY TELEPHONE ENCOUNTER NOTE: Marlen SANABRIA MD CNTRL WSTRN LOCAL TITLE: OPTOMETRY TELEPHONE NOTE [place] [facility] STANDARD TITLE: OPTOMETRY TELEPHONE ENCOUNTER NO TE DATE OF NOTE: JUL 28, 2022@15:28 ENTRY DATE: JUL 28, 2022@15:28:30 AUTHOR: MARYCHUY SANABRIA EXP COSIGNER: URGENCY: STATUS: COMPLETED OPTOMETRY TELEPHONE NOTE Has ADDENDA Spoke with on the phone. He stat es he recieved both of his new glasses in the mail and he called the place he got them from and told them they were bent and did not fit right. says he was told to keep them and they will send him out 2 new pairs. Explained the next renee e he gets new glasses mailed they will most likely need to be adjusted and fi t. He said [place] is too far from [place] to travel to have them fit. /yee/ MARYCHUY SANABRIA INTERACTIVE MEDIA PROJECT MANAGER Signed: 07/28/2022 15:31 08/02/2022 ADDENDUM STATUS: COMPLETED Received 2 new pair glasses (clear and sun) whic h were replacements. I evaluated both pairs and they look perfect. Benc hed and cleaned. Spoke to who does not want to come all the way he re to pick them up. He requested they be mailed. I extended a fittings appointment for proper adjustments which he declined. understan ds that if they do not fit comfortably again they will need and fittings and will not be reordered. He was thankful for the info. Address confirmed. /yee/ MARYCHUY SANABRIA INTERACTIVE MEDIA PROJECT MANAGER Signed: 08/02/2022 11:38
--- OUTSIDE RECORDS SUMMARY | 2022-11-24 16:23 | XMS_ITS ---
:1960 Author Organization Department [facility] rs Address [address] [place] [address] Support Name Relationship Address Phone DIMPLESUNNY Unavailable [address] [place] [address] SUNNY MUSA Unavailable [address] [place] [address] Insurance Providers: All historical and current Section [...] MEDICARE MEDICARE PART Jul 20, PART A [id number] [phone] Gail QUINTANILLA PATIENT (WNR) (M) A 2009A 4 ERARD MEDICARE MEDICARE PART Jul 20, PART B [id number] Gail QUINTANILLA PATIENT (WNR) (M) B 2009A 4 [place]ARD MEDICARE MEDICARE PART Jul 20, PART A [phone] Gail QUINTANILLA PATIENT (WNR) (M) A 2009A 00 [place] MEDICARE MEDICARE PART Jul 20, PART B [id number] [phone] Gail QUINTANILLA PATIENT (WNR) (M) B 2009A ERARD Selected Encounter This section includes the information on record at [place] for the Encounter. Date/Time Encounter Type Encounter Description Reason Provider Source Oct 26, 2022 09:24 Outpatient Encounter PRIMARY CARE/MEDICINE AM [facility] Encounter [...] this document. The data comes from all [place] facilities. Date Advance Directives Provider Source Jul 06, 2009 ADVANCE DIRECTIVE KEESHA JONES Jr KOROMA Encounter Notes: All associated encounter notes This section contains the clinical notes associated to the Encounter. Date/Time Encounter Note(s) Provider Source Oct 26, 2022 09:24 AM NURSING ADMINISTRATIVE NOTE: QUINTON MARINO LOCAL TITLE: NON-VA PRESCRIPTION STANDARD TITLE: NURSING ADMINISTRATIVE NOTE DATE OF NOTE: OCT 26, 2022@09:24 ENTRY DATE: OCT 26, 2022@09:24:58 AUTHOR: QUINTON MARINO EXP COSIGNER: URGENCY: STATUS: COMPLETED Date: Oct Prescriber Name/Tel/Fax :Dr. Marty Koroma [phone] RX : Advair* Si puffs BID # tabs: QTY 1g Refills: 5 SUBSTITUTIONS ALLOWED* Notes: Window (X) The following actions were p erformed: Prescription Attached, Placed in Provider Folder, PACT Team RN and Provider added as addit ional Signers to this request *Please let patient know radha t this request may take up to 72 hours to process.* /yee/ QUINTON MARINO RN STAFF NURSE Signed: 10/26/2022 09:26
== END 2022-11-24 17:00 | disposition home or self-care (01) ==
PROVIDERS: Emergency Provider Emergency Medicine
DX: J32.0 Chronic maxillary sinusitis (principal); Z79.899 Other long term (current) drug therapy
CPT/HCPCS: 99282; 99283